=== PATIENT | female | born 1960 | race Caucasian/White ===

== ENCOUNTER 2025-07-18 18:10 | Inpatient (IN) ==
--- NOTE | 2025-07-18 18:39 | Emergency Department Note ---
History of Present Illness General Chief complaint: Infection Stated complaint: BLACK SPOT ON FOOT, INFECTION IN BONE Time Seen by Provider: 07/18/25 18:28 History of Present Illness Maximum Pain Intensity: 5 This is a 65-year-old female with a history of diabetes that presents to the emergency department via private vehicle referred by local urgent care with complaints of "left foot infection". The patient notes that her noticed a black spot to her distal left lateral foot on Friday, 2 days ago. No known trauma or injury. The patient noticed the area is somewhat uncomfortable. No nausea or vomiting. No fevers or chills. Patient referred in for further evaluation. Current pain 01/01. Home Medications Medication Instructions Recorded Confirmed Type aspirin 81 mg tablet 81 mg PO DAILY ##0 03/17/13 07/18/25 History epinephrine 0.3 mg/0.3 mL 0.3 mg IM UD PRN Allergic Reaction 09/28/15 07/18/25 History injection, auto-injector (EpiPen) ##0 folic acid 1 mg tablet 1 mg PO DAILY ##0 09/28/15 07/18/25 History albuterol sulfate 90 mcg/actuation 2 puff inhalation Q4H PRN WHEEZING 07/18/25 07/18/25 History aerosol inhaler OR COUGH atorvastatin 20 mg tablet 20 mg PO DAILY 07/18/25 07/18/25 History cephalexin 500 mg capsule 500 mg PO BID 07/18/25 07/18/25 History empagliflozin 10 mg tablet 10 mg PO DAILY 07/18/25 07/18/25 History (Jardiance) hydrocodone 5 mg-acetaminophen 325 1 tab PO QID PRN Pain 07/18/25 07/18/25 History mg tablet insulin glargine 100 unit/mL (3 27 unit subcut HS 07/18/25 07/18/25 History mL) subcutaneous pen (Lantus Solostar U-100 Insulin) levothyroxine 88 mcg tablet 88 mcg PO DAILY 07/18/25 07/18/25 History lisinopril 10 mg tablet 10 mg PO DAILY 07/18/25 07/18/25 History losartan 25 mg tablet 25 mg PO QAM 07/18/25 07/18/25 History sodium chloride 1,000 mg soluble 3,000 mg PO DAILY 07/18/25 07/18/25 History tablet tirzepatide 7.5 mg/0.5 mL 7.5 mg subcut WK 07/18/25 07/18/25 History subcutaneous pen injector (Mounjaro) Allergies Allergy/AdvReac Type Severity Reaction Status Date / Time bee venom protein (honey bee) Allergy Severe ANAPHYLAXIS Verified 07/18/25 20:06 latex Allergy Severe ANAPHYLAXIS Verified 07/18/25 20:06 adhesive Allergy Unknown TAPE - Verified 07/18/25 20:06 SKIN IRRITATION allopurinol Allergy Unknown UNKNOWN Verified 07/18/25 20:06 flurbiprofen Allergy Unknown UNKNOWN Unverified 07/18/25 20:06 vitamin E (d-alpha Allergy Unknown Rash Verified 07/18/25 20:06 tocopherol) NSAIDS (Non-Steroidal AdvReac Unknown UNKNOWN Verified 07/18/25 20:06 Anti-Inflamma Past Med/Surg History Problem List (Updated 07/18/25 @ 23:33 by Drew Yan PA-C) Hypothyroid Sleep apnea RITTER (nonalcoholic steatohepatitis) Nicotine dependence Rheumatoid arthritis Dyslipidemia Hypertension, uncontrolled COPD (chronic obstructive pulmonary disease) Insulin-requiring or dependent type II diabetes mellitus Foot osteomyelitis, left (Acute) Idiopathic polyneuropathy Cellulitis (Acute) Post-operative infection (Acute) Yeast dermatitis (Acute) Social History Smoking Status: Current every day smoker Tobacco Type: Cigarettes Second Hand Exposure: Yes; Do You Dip or Chew Tobacco: No; Tobacco Cessation Education Requested by Patient: No Hx Alcohol Use: No Hx Substance Use: No Preferred Language: Botswanan Communication Ability: Effective Time Analysis Clerk Required: No Beliefs That Will Affect Care: None Current Living Situation: Spouse and Family Current Living Situation Comment: Lives at home with Fiance, son, and 2 grandkids Other Information That Helps Us Care for You: No Feels Safe at Home: Yes Safety Concerns: Feels Safe At This Time Assistive Devices: Denture - Upper and Denture - Lower Review of Systems A total of 10 systems reviewed and were otherwise negative Physical Exam Vital Signs Vital Signs - 24 hr 07/18/25 18:22 07/18/25 18:52 07/18/25 20:11 Temperature 36.4 C L Temperature Source Skin Pulse Rate 89 Pulse Rate [Right Finger] 81 84 Pulse Rhythm Regular Pulse Rhythm [Right Finger] Pulse Strength Normal Pulse Strength [Right Finger] Respiratory Rate 20 19 20 Respiratory Effort / Characteristics Non-Labored Spontaneous Accessory Muscle Use Non-Labored Respiratory Depth Normal Normal Blood Pressure 205/108 H Blood Pressure [Right Arm] 185/91 H 204/116 H Blood Pressure Mean 140 Blood Pressure Mean [Right Arm] 122 145 Blood Pressure Position [Right Arm] Pulse Oximetry 97 96 98 Oxygen Delivery Method Room Air Room Air Room Air Sepsis Recent Fever Within 48 Hours No Sepsis New/Unexplained Change in Mental Status N/A Sepsis Action Taken by Nursing No Action Required 07/18/25 20:30 Temperature Temperature Source Pulse Rate Pulse Rate [Right Finger] 82 Pulse Rhythm Pulse Rhythm [Right Finger] Regular Pulse Strength Pulse Strength [Right Finger] Normal Respiratory Rate 20 Respiratory Effort / Characteristics Respiratory Depth Normal Blood Pressure Blood Pressure [Right Arm] 187/98 H Blood Pressure Mean Blood Pressure Mean [Right Arm] 127 Blood Pressure Position [Right Arm] Lying Pulse Oximetry 96 Oxygen Delivery Method Room Air Sepsis Recent Fever Within 48 Hours Sepsis New/Unexplained Change in Mental Status Sepsis Action Taken by Nursing VITAL SIGNS - Vital signs and nursing notes were reviewed. Hypertensive, otherwise stable and afebrile. GENERAL -65-year-old female appearing her stated age who is in no acute distress. Communicates well with provider and answers questions appropriately. SKIN -1.5 cm slightly raised dark ulceration to the distal lateral left foot area. HEAD - NC/AT. EYES - Sclera anicteric. LUNGS - CTA CARDIAC - RRR EXTREMITIES - No clubbing or peripheral cyanosis. Left dorsalis pedis pulse within normal limits. +5/5 strength noted in UE/LE bilaterally. Left distal, lateral foot ulcer noted. No purulence. NEUROLOGIC - Cranial nerves grossly intact. PSYCH -alert, oriented and pleasant on exam Course Administered Medications Enoxaparin Sodium (Enoxaparin Inj 40 Mg/0.4 Ml Syr) 40 mg SQ Q24H AMINATA Stop: 08/17/25 22:59 Last Admin: 07/18/25 23:15 Dose: 40 mg Documented By: EDMAR Hydroxychloroquine Sulfate (Hydroxychloroquine Sulfate 200 Mg Tab) 400 mg PO HS AMINATA Stop: 08/17/25 22:44 Last Admin: 07/18/25 23:15 Dose: 400 mg Documented By: EDMAR Insulin Aspart (Insulin Aspart Per Unit Charge) 0 units SC ACHS AMINATA Stop: 08/17/25 22:35 Last Admin: 07/18/25 23:14 Dose: 3 units Documented By: EDMAR Co-signed By: LYRIC Insulin Glargine (Lantus Per Unit Charge) 30 units SQ HS AMINATA Stop: 08/17/25 22:35 Last Admin: 07/18/25 23:13 Dose: 30 units Documented By: EDMAR Co-signed By: LYRIC Lisinopril (Lisinopril 20 Mg Tab) 20 mg PO DAILY AMINATA Stop: 08/17/25 22:44 Last Admin: 07/18/25 23:15 Dose: 20 mg Documented By: EDMAR Losartan Potassium (Losartan Potassium 50 Mg Tab) 100 mg PO QAM AMINATA Stop: 08/17/25 22:44 Last Admin: 07/18/25 23:15 Dose: 100 mg Documented By: EDMAR Discontinued Medications Cefepime HCl (Cefepime 2,000 Mg/20 Ml Iv Push) Confirm Administered Dose 2,000 mg IV .STK-MED ONE Stop: 07/18/25 20:43 Last Admin: 07/18/25 20:43 Dose: Not Given Documented By: RONALD Gadobutrol (Gadobutrol 65ml Vial) 9 ml IV ONCE ONE Stop: 07/18/25 22:09 Last Admin: 07/18/25 22:08 Dose: 9 ml Documented By: NIXON Cefepime HCl (Maxipime 2000mg) 2,000 mg in 20 mls @ 5 mls/min IV NOW STA; Protocol Stop: 07/18/25 18:39 Last Admin: 07/18/25 20:43 Dose: 5 mls/min Documented By: RONALD Piperacillin Sod/Tazobactam Sod (Zosyn) 4.5 gm in 100 mls @ 200 mls/hr IV NOW ONE; Protocol Stop: 07/18/25 23:14 Last Admin: 07/18/25 23:14 Dose: 200 mls/hr Documented By: EDMAR Medical Decision Making Laboratory Data 07/18/25 18:45 07/18/25 18:45 Lab Results 07/18/25 07/18/25 Range/Units 18:45 18:55 WBC 9.38 (4.8-10.8) K/ul RBC 4.31 (4.20-5.40) M/uL Hgb 13.7 (12.0-16.0) g/dL Hct 39.5 (37.0-47.0) % MCV 91.6 (80.0-100.0) fL MCH 31.8 (25.0-34.0) pg MCHC 34.7 (32.0-36.0) g/dL RDW Std Deviation 43.6 (36.4-46.3) fL RDW Coeff of Hilary 12.8 (11.5-14.5) % Plt Count 230 (130-400) K/uL MPV 11.1 (9.4-12.4) fL Immature Gran % (Auto) 0.2 % Neut % (Auto) 54.5 % Lymph % (Auto) 36.0 % Lassen % (Auto) 6.9 % Eos % (Auto) 2.1 % Baso % (Auto) 0.3 % Neut # (Auto) 5.10 (1.40-6.50) K/uL Lymph # (Auto) 3.38 (1.20-3.40) K/uL Lassen # (Auto) 0.65 H (0.11-0.59) K/uL Eos # (Auto) 0.20 (0.00-0.50) K/uL Baso # (Auto) 0.03 (0.00-0.20) K/uL Immature Gran # (Auto) 0.02 (0.01-0.20) K/uL ESR 91 H (0-30) mm/hr PT 10.6 (9.0-12.0) Seconds INR 1.0 (0.9-1.1) APTT 25 (21-31) Seconds PTT Ratio 0.9 Sodium 129 L (136-145) mmol/L Potassium 4.3 (3.5-5.1) mmol/L Chloride 95 L (98-107) mmol/L Carbon Dioxide 26 (21-32) mmol/L Anion Gap 8 (3-11) BUN 19 (6-23) mg/dl Creatinine 0.74 (0.6-1.2) mg/dl Est Cr Clr Drug Dosing 85.4 ml/min eGFR 90.85 BUN/Creatinine Ratio 25.7 H (10-20) Glucose 227 H (70-99(Fasting)) mg/dl Calcium 9.3 (8.6-10.3) mg/dl Magnesium 2.0 (1.7-2.4) mg/dl Total Bilirubin 0.4 (0.2-1.0) mg/dl AST 21 (13-39) U/L ALT 28 (7-52) U/L Alkaline Phosphatase 145 H (34-104) U/L C-Reactive Protein 2.99 H (0-0.5) mg/dl Total Protein 8.2 (6.0-8.3) gm/dl Albumin 3.6 (3.4-5.0) gm/dl Globulin 4.6 H (2.5-4.0) gm/dl Albumin/Globulin Ratio 0.8 L (0.9-2) Procalcitonin 0.18 (0-0.5) ng/ml Nasal Screen MRSA (PCR) Negative (Negative) Imaging Data Radiologist's Impression: Foot X-Ray 07/18/25 18:36 INDICATION: Pain TECHNIQUE: 3 views of the left foot were obtained. COMPARISON: None FINDINGS: No displaced acute osseous process is identified. There is soft tissue inflammatory change with swelling laterally abutting the fifth digit MTP joint. Subtle erosive changes are suggested in the abutting bones of the metatarsal head and the base of the proximal phalanx. Pes planus with likely Charcot arthropathy of the hindfoot and the midfoot. IMPRESSION: Erosive changes are suggested in the fifth digit metatarsal head and proximal phalangeal base abutting the soft tissue inflammatory change. Early osteomyelitis could be a consideration Electronically signed by Jordan Boswell 07-18-2025 7:55 PM MDM Narrative Patient was seen and evaluated as above in room B09. Review was performed of triage nursing notes and vital signs. A thorough history and physical exam was performed. The patient presents to us today for evaluation of what appears to be an infection to the left foot. She was referred over concern for possible osteomyelitis. Options of care were discussed with the patient. IV access was established. Labs were drawn. There is no leukocytosis or concerning anemia. There is ESR elevation of 91, hyponatremia 129, hyperglycemia 227 with a CRP of 2.99. Procalcitonin within normal range. MRSA screen negative. IV cefepime ordered. X-ray does reveal concern for erosive changes that may be secondary to osteomyelitis. I do believe that further evaluation and management in the inpatient setting is warranted. Case discussed with the hospitalist service. Please refer to further documentation regarding her stay. In the evaluation and treatment of this patient the following differential diagnoses were entertained: Cellulitis, abscess, osteomyelitis, among others Impression & Plan Foot osteomyelitis, left Discharge Plan Visit Data Chief Complaint: Infection Stated Complaint: BLACK SPOT ON FOOT, INFECTION IN BONE ED Provider: Sg Robin ED Midlevel Provider: Drew Yan Discharge Problem: Foot osteomyelitis, left Patient Disposition: Admitted As Inpatient Condition: Good Discharge Instructions Interventions: ED Discharge Assessment Last Done: 07/18/25 21:39
[2025-07-18 19:12] LABS: Hematocrit (blood only) 39.5 % (37.0-47.0); Hemoglobin 13.7 g/dL (12.0-16.0); Immature Granulocytes # (auto) 0.02 K/uL (0.01-0.20); Immature Granulocytes % (auto) 0.2 %; Mean Corpuscular Hemoglobin 31.8 pg (25.0-34.0); Mean Corpuscular Volume 91.6 fL (80.0-100.0); Platelet Count 230 K/uL (130-400); RDW Standard Deviation 43.6 fL (36.4-46.3); Red Blood Count 4.31 M/uL (4.20-5.40); White Blood Count 9.38 K/ul (4.8-10.8)
[2025-07-18 19:43] LABS: INR 1.0 (0.9-1.1); Partial Thromboplastin Time 25 Seconds (21-31); Prothrombin Time 10.6 Seconds (9.0-12.0)
[2025-07-18 19:44] LABS: Alanine Aminotransferase 28.0 U/L (7-52); Albumin Globulin Ratio 0.8 (0.9-2); Albumin Level 3.6 gm/dl (3.4-5.0); Alkaline Phosphatase 145.0 U/L (34-104); Anion Gap 8.0 (3-11); Bilirubin,Total 0.4 mg/dl (0.2-1.0); Blood Urea Nitrogen 19.0 mg/dl (6-23); Calcium 9.3 mg/dl (8.6-10.3); Carbon Dioxide 26.0 mmol/L (21-32); Chloride 95.0 mmol/L (98-107); Creatinine Clr Calc Pharmacy 85.4 ml/min; Globulin 4.6 gm/dl (2.5-4.0); Glucose 227.0 mg/dl (70-99(Fasting)); Magnesium 2.0 mg/dl (1.7-2.4); Potassium 4.3 mmol/L (3.5-5.1); Sodium 129.0 mmol/L (136-145); Total Protein 8.2 gm/dl (6.0-8.3)
--- NOTE | 2025-07-18 19:55 | XRay Report ---
INDICATION: Pain TECHNIQUE: 3 views of the left foot were obtained. COMPARISON: None FINDINGS: No displaced acute osseous process is identified. There is soft tissue inflammatory change with swelling laterally abutting the fifth digit MTP joint. Subtle erosive changes are suggested in the abutting bones of the metatarsal head and the base of the proximal phalanx. Pes planus with likely Charcot arthropathy of the hindfoot and the midfoot. IMPRESSION: Erosive changes are suggested in the fifth digit metatarsal head and proximal phalangeal base abutting the soft tissue inflammatory change. Early osteomyelitis could be a consideration Electronically signed by Jordan Boswell 07-18-2025 7:55 PM
[2025-07-18] MEDS: CEFEPIME 2000MG 2,000 MG/20 ML SYR IV STA (20:43)
[2025-07-18] MEDS: CEFEPIME 2,000 MG/20 ML IV PUSH IV ONE (20:43)
--- NOTE | 2025-07-18 20:49 | History & Physical Report ---
Date of Service July 18, 2025 Assessment & Plan (1) Foot osteomyelitis, left: (2) Insulin-requiring or dependent type II diabetes mellitus: (3) COPD (chronic obstructive pulmonary disease): (4) Hypertension, uncontrolled: (5) Dyslipidemia: (6) Hypothyroid: (7) Rheumatoid arthritis: (8) Nicotine dependence: (9) RITTER (nonalcoholic steatohepatitis): (10) Sleep apnea: Plan Patient 65-year-old female with known diabetes presents with what appears to be osteomyelitis and necrotic hematoma over the left fifth metatarsal. Admit to the MedSur unit Broad-spectrum antibiotics MRI of the foot to more fully evaluate for osteomyelitis Podiatry consult Monitor glucose, insulin long-acting and short acting, consult pharmacy for further management Continue outpatient blood pressure medications, increase lisinopril losartan for better blood pressure control Check hemoglobin A1c Check TSH Consult case management, anticipate patient may need prolonged IV antibiotics Monitor blood cultures History of Present Illness Chief Complaint: Black spot on side of left foot Primary Care Provider: Preston Eduardo Jr, MD Patient is a 65-year-old female with known diabetes, COPD, hypertension, rheumatoid arthritis, and dyslipidemia was made aware by her significant other that she had a black spot on the lateral aspect of her left foot on Friday. She did notice it be a little bit painful but was not really too red or swollen. Proceeded to urgent care today x-rays urgent care question osteomyelitis and they sent her to the emergency room. In the emergency room Repeat x-rays were concerning for osteomyelitis. WBCs were normal but ESR was significantly elevated. Procalcitonin was within normal range. She was referred to our service for further evaluation and treatment. Time of my evaluation patient is comfortable. She denies any fever or chills. No cough or cold symptoms. She really could not give a whole lot of detailed history. She does not remember hitting the foot or having open sore on the foot. States that her significant other saw it on Friday. Before then she has no known issues with her feet. She does know she has diabetes. She does know that she takes a long-acting and a short acting insulin. She really cannot tell me the names of any of her other medications. She does admit to smoking at least a pack to a pack and a half a day of cigarettes a day no significant alcohol use. Allergies Allergy/AdvReac Type Severity Reaction Status Date / Time bee venom protein (honey bee) Allergy Severe ANAPHYLAXIS Verified 07/18/25 20:06 latex Allergy Severe ANAPHYLAXIS Verified 07/18/25 20:06 adhesive Allergy Unknown TAPE - Verified 07/18/25 20:06 SKIN IRRITATION allopurinol Allergy Unknown UNKNOWN Verified 07/18/25 20:06 flurbiprofen Allergy Unknown UNKNOWN Unverified 07/18/25 20:06 vitamin E (d-alpha Allergy Unknown Rash Verified 07/18/25 20:06 tocopherol) NSAIDS (Non-Steroidal AdvReac Unknown UNKNOWN Verified 07/18/25 20:06 Anti-Inflamma Home Medications Medication Instructions Recorded Confirmed Type aspirin 81 mg tablet 81 mg PO DAILY ##0 03/17/13 07/18/25 History epinephrine 0.3 mg/0.3 mL 0.3 mg IM UD PRN Allergic Reaction 09/28/15 07/18/25 History injection, auto-injector (EpiPen) ##0 folic acid 1 mg tablet 1 mg PO DAILY ##0 09/28/15 07/18/25 History albuterol sulfate 90 mcg/actuation 2 puff inhalation Q4H PRN WHEEZING 07/18/25 07/18/25 History aerosol inhaler OR COUGH atorvastatin 20 mg tablet 20 mg PO DAILY 07/18/25 07/18/25 History cephalexin 500 mg capsule 500 mg PO BID 07/18/25 07/18/25 History empagliflozin 10 mg tablet 10 mg PO DAILY 07/18/25 07/18/25 History (Jardiance) hydrocodone 5 mg-acetaminophen 325 1 tab PO QID PRN Pain 07/18/25 07/18/25 History mg tablet insulin glargine 100 unit/mL (3 27 unit subcut HS 07/18/25 07/18/25 History mL) subcutaneous pen (Lantus Solostar U-100 Insulin) levothyroxine 88 mcg tablet 88 mcg PO DAILY 07/18/25 07/18/25 History lisinopril 10 mg tablet 10 mg PO DAILY 07/18/25 07/18/25 History losartan 25 mg tablet 25 mg PO QAM 07/18/25 07/18/25 History sodium chloride 1,000 mg soluble 3,000 mg PO DAILY 07/18/25 07/18/25 History tablet tirzepatide 7.5 mg/0.5 mL 7.5 mg subcut WK 07/18/25 07/18/25 History subcutaneous pen injector (Flaco) Past Med/Surg History Problem List (Updated 07/18/25 @ 20:47 by Sathya Harrington DO) Hypothyroid Sleep apnea RITTER (nonalcoholic steatohepatitis) Nicotine dependence Rheumatoid arthritis Dyslipidemia Hypertension, uncontrolled COPD (chronic obstructive pulmonary disease) Insulin-requiring or dependent type II diabetes mellitus Foot osteomyelitis, left Idiopathic polyneuropathy Cellulitis (Acute) Post-operative infection (Acute) Yeast dermatitis (Acute) Social History Smoking Status: Current every day smoker Tobacco Type: Cigarettes Preferred Language: Algerian Feels Safe at Home: Yes Review of Systems Review of Systems: Pertinent positive and negative review of systems as mentioned in the HPI Physical Exam Physical Exam: Constitutional: Alert, not overly ill in appearance, nontoxic HEENT: Mucous membranes moist. Sclera clear Neck: Soft, no adenopathy Lungs: Decreased breath sounds, few expiratory wheezes CV: S1-S2, regular Abdomen: Soft, nontender, nondistended Extremities: 1+ pretibial edema Musculoskeletal: Significantly deformed joints from arthritis specifically of the hands, arthritic nodules on forearm Neuro: No focal deficits Psych: Cooperative, normal mood Results & Data Results & Data Vital Signs (Past 12 Hours) Vital Signs Temp Pulse Pulse Resp BP BP Pulse Ox 07/18/25 20:11 84 20 204/116 H 98 07/18/25 18:52 81 19 185/91 H 96 07/18/25 18:22 36.4 C L 89 20 205/108 H 97 O2 Del Method 07/18/25 20:11 Room Air 07/18/25 18:52 Room Air 07/18/25 18:22 Room Air Diagnostic Findings Reviewed imaging, laboratory and diagnostic studies. Pertinent findings as below. WBCs 9.3 Hemoglobin 13.7 Platelets of 230 ESR 91 Coags within normal range Sodium 129 Creatinine 0.74 Glucose 227 Procalcitonin 0.18 MRSA nasal screen negative Foot x-ray: Fifth metatarsal and fifth proximal phalange concerning for possible osteomyelitis Code Status & VTE Plan VTE Prophylaxis Plan VTE Prophylaxis will be ordered: Yes
[2025-07-18] MEDS: GADOBUTROL 65ML VIAL IV ONE (22:08)
[2025-07-18] MEDS ORDERED: ALUMINUM/MAGNESIUM SUSP 30 ML UDC PO PRN (22:36)
[2025-07-18] MEDS ORDERED: DEXTROSE 50% 50 ML SYRINGE IV PRN (22:36)
[2025-07-18] MEDS ORDERED: GLUCOSE 10 TAB/TUBE PO PRN (22:36)
[2025-07-18] MEDS ORDERED: GLUCAGON FOR INJ 1 MG VIAL SQ PRN (22:36)
[2025-07-18] MEDS ORDERED: ALBUT/IPRATROP 3MG/0.5MG NEB 3 ML VIAL NEB PRN (22:36)
[2025-07-18] MEDS ORDERED: PHARMACY GLYCEMIC MGMT CONSULT PRN (22:36)
[2025-07-18] MEDS ORDERED: POLYETHYLENE (MIRALAX) 17 GM PACK PO PRN (22:36)
[2025-07-18] MEDS ORDERED: GLUCOSE 40% GEL 15 GM TUBE PO PRN (22:36)
[2025-07-18] MEDS ORDERED: ONDANSETRON INJ 2 MG/ML 2 ML VIAL IV PRN (22:36)
[2025-07-18] MEDS ORDERED: ACETAMINOPHEN 325 MG TAB PO PRN (22:36)
[2025-07-18] MEDS ORDERED: MAGNESIUM HYDROXIDE SUSP 30 ML UDC PO PRN (22:36)
[2025-07-18] MEDS ORDERED: CARBOHYDRATES FOR HYPOGLYCEMIA PO PRN (22:36)
[2025-07-18] MEDS: LANTUS PER UNIT CHARGE SQ SCH (23:13)
[2025-07-18] MEDS: INSULIN ASPART PER UNIT CHARGE SC SCH (23:14)
[2025-07-18] MEDS: PIPERACILLIN/TAZOBACTAM 4.5 GM/100 ML BAG IV ONE (23:14)
[2025-07-18] MEDS: ENOXAPARIN INJ 40 MG/0.4 ML SYR SQ SCH (23:15)
[2025-07-18] MEDS: HYDROXYCHLOROQUINE SULFATE 200 MG TAB PO SCH (23:15)
[2025-07-18] MEDS: LOSARTAN POTASSIUM 50 MG TAB PO SCH (23:15)
--- NOTE | 2025-07-19 00:29 | Magnetic Resonance Report ---
Exam(s): MRI LEFT FOOT W/WO Contrast IV Amt: 9ml gadavist EXAM: MR Left Lower Extremity Without and With Intravenous Contrast, Foot CLINICAL HISTORY: Reason for exam: Osteomyelitis fifth metatarsal. OTHER: Other Notes: wound 5th metatarsal head, rule out osteomyelitis TECHNIQUE: Multiplanar magnetic resonance images of the left foot without and with intravenous contrast. Moderate motion artifact. CONTRAST: Patient received 9ml gadavist of IV contrast COMPARISON: Left foot x-ray, same day. FINDINGS: Soft tissues: Crescentic fluid collection associated with the 5th digit MTP joint, measures 0.8 x 0.2 x 0.6 cm, adjacent to skin ulceration, difficult to clearly evaluate due to motion artifact, small abscess or septic joint difficult to exclude. Bones/joints: Small focal area marrow edema and enhancement distal 5th metatarsal, nonspecific, suspect osteomyelitis. Severe degenerative joint disease at multiple areas, including 5th MTP, 4th and 5th TMT joints. IMPRESSION: 1. Nonspecific edema distal 5th metatarsal, suspect osteomyelitis, given surrounding skin ulceration. 2. Crescentic fluid deep to skin ulceration, nonspecific, small abscess or septic arthritis difficult to exclude. 3. Severe arthritis, multiple levels. 4. Moderate motion/artifact. Electronically signed by: Jerrica Fuchs M.D. 07/19/25 00:28 AM
[2025-07-19] MEDS: PIPERACILLIN/TAZOBACTAM 4.5 GM/100 ML BAG IV SCH (04:10)
[2025-07-19] MEDS: LEVOTHYROXINE SODIUM 88 MCG TABLET PO SCH (04:10)
[2025-07-19] MEDS ORDERED: Nursing to Pharmacy Communication SCH ×2 (05:00→20:00)
[2025-07-19] MEDS: INSULIN ASPART PER UNIT CHARGE SC SCH ×2 (06:17→22:03)
[2025-07-19 06:23] LABS: Hematocrit (blood only) 37.2 % (37.0-47.0); Hemoglobin 13.3 g/dL (12.0-16.0); Mean Corpuscular Hemoglobin 32.6 pg (25.0-34.0); Mean Corpuscular Volume 91.2 fL (80.0-100.0); Platelet Count 231 K/uL (130-400); RDW Standard Deviation 42.0 fL (36.4-46.3); Red Blood Count 4.08 M/uL (4.20-5.40); White Blood Count 7.19 K/ul (4.8-10.8)
[2025-07-19 06:42] LABS: Anion Gap 9.0 (3-11); Blood Urea Nitrogen 15.0 mg/dl (6-23); Calcium 8.9 mg/dl (8.6-10.3); Carbon Dioxide 25.0 mmol/L (21-32); Chloride 98.0 mmol/L (98-107); Creatinine Clr Calc Pharmacy 116.0 ml/min; Glucose 173.0 mg/dl (70-99(Fasting)); Potassium 4.1 mmol/L (3.5-5.1); Sodium 132.0 mmol/L (136-145)
[2025-07-19 06:57] LABS: Thyroid Stimulating Hormone 11.574 uIu/ml (0.300-4.500)
[2025-07-19 07:47] LABS: Hemoglobin A1C 9.6 % (4.5-5.6)
[2025-07-19 07:51] LABS: T4 Free Thyroxine 1.06 ng/dl (0.61-1.60)
[2025-07-19] MEDS: ALBUT/IPRATROP 3MG/0.5MG NEB 3 ML VIAL NEB SCH (07:58)
[2025-07-19] MEDS: REMOVE NICODERM PATCH SCH (08:40)
[2025-07-19] MEDS: ATORVASTATIN 20 MG TAB PO SCH (08:41)
[2025-07-19] MEDS: FOLIC ACID 1 MG TAB PO SCH (08:41)
[2025-07-19] MEDS: ASPIRIN 81 MG ECTAB PO SCH (08:41)
[2025-07-19] MEDS: SODIUM CHLORIDE 1 GM TABLET PO SCH (08:42)
[2025-07-19] MEDS: UMECLIDINIUM BROMIDE 62.5MCG/BLISTER 7 PUFFS/INHALER INH SCH (08:42)
[2025-07-19] MEDS: NICOTINE 21 MG/24 HR TDSY TD SCH (08:43)
[2025-07-19] MEDS ORDERED: LOSARTAN POTASSIUM 50 MG TAB PO SCH (09:00)
--- NOTE | 2025-07-19 10:45 | Podiatry Consultation ---
Date of Consultation July 19, 2025 Assessment & Plan (1) Diabetic ulcer of left foot associated with type 2 diabetes mellitus, with necrosis of bone: Diabetic foot ulcer location: midfoot Qualified Code(s): E11.621 - Type 2 diabetes mellitus with foot ulcer; L97.424 - Non-pressure chronic ulcer of left heel and midfoot with necrosis of bone (2) Cellulitis of left foot: Plan Imaging results including MRI and x-ray of the left foot reviewed with patient showing radiographic findings consistent with osteomyelitis surrounding the fifth metatarsal phalangeal joint. Wound over the lateral aspect of the fifth metatarsal head left foot is debrided as detailed in procedure note below with underlying wound extending to periosteum/joint capsule. Reviewed treatment options with patient including extended course of antibiotics versus partial fifth ray amputation. Patient would like to move forward with partial fifth ray amputation. She is reaching out to her family to discuss prior to signing consent. Order placed for lower extremity duplex ultrasound with ABIs prior to amputation. Culture collected from left lateral foot wound sent for culture and sensitivity. Plan for partial fifth ray amputation of the left foot with attempted primary closure 07/19/2025. Continue n.p.o. until postop Thank you for consulting podiatry daily care of this patient. Will continue to follow while she remains in house and skin for follow-up in the podiatry clinic following discharge. Patient would benefit from appointment with diabetic foot clinic at time of discharge to initiate process of obtaining diabetic foot wear in hopes to prevent future ulceration and amputation. Surgical Excisional Debridement: Indication:Removal of necrotic tissue to promote healing Pre-op diagnosis: Diabetic ulcer left foot Post-op diagnosis: Same Procedure: Surgical excisional debridement diabetic ulcer left foot Surgeon: Franklin Zhou DPM Anesthesia: None Bleeding:Minimal Disposition: Tolerated well Procedure: Informed consent obtained, Time Out taken. Patient understands and agrees to procedure. Excisional debridement was carried out of diabetic ulcer left foot consisting of hyperkeratotic, slough and subcutaneous tissue was carried out utilizing a curette and 15 blade. Anesthesia-none. Patient tolerated the procedure well. Bleeding-minimal. Controlled with-direct pressure. Post-debridement measurements: 1 cm x 0.9 cm x 4 cm. A total of 0.9 cm2 were debrided. History of Present Illness Reason for Consultation: Left fifth metatarsal osteomyelitis Attending Physician: Merritt Hercules MD History of Present Illness 65-year-old female past medical history significant for type 2 diabetes with diabetic peripheral neuropathy, COPD, hypertension, rheumatoid arthritis, dyslipidemia. Presents to [facility] emergency department 07/18/2025 with increased pain to the lateral aspect of the left foot. She reports first noticing a blood blister to the lateral aspect of the foot 07/16/2025. Denies any drainage. She has had some redness and swelling surrounding the wound with redness extending proximally along the lateral foot which seems to get worse with weightbearing and shoe gear and improves with elevation. Denies previous treatment. Denies nausea, vomiting, fever, chills. On admission white blood count is 9.3, ESR 91, C-reactive protein 2.99, procalcitonin 0.18. X-ray and MRI imaging of the left foot concerning for osteomyelitis surrounding the fifth metatarsal phalangeal joint. Allergies Allergy/AdvReac Type Severity Reaction Status Date / Time bee venom protein (honey bee) Allergy Severe ANAPHYLAXIS Verified 07/18/25 20:06 latex Allergy Severe ANAPHYLAXIS Verified 07/18/25 20:06 adhesive Allergy Unknown TAPE - Verified 07/18/25 20:06 SKIN IRRITATION allopurinol Allergy Unknown UNKNOWN Verified 07/18/25 20:06 flurbiprofen Allergy Unknown UNKNOWN Unverified 07/18/25 20:06 vitamin E (d-alpha Allergy Unknown Rash Verified 07/18/25 20:06 tocopherol) NSAIDS (Non-Steroidal AdvReac Unknown UNKNOWN Verified 07/18/25 20:06 Anti-Inflamma Home Medications Medication Instructions Recorded Confirmed Type aspirin 81 mg tablet 81 mg PO DAILY ##0 03/17/13 07/18/25 History epinephrine 0.3 mg/0.3 mL 0.3 mg IM UD PRN Allergic Reaction 09/28/15 07/18/25 History injection, auto-injector (EpiPen) ##0 folic acid 1 mg tablet 1 mg PO DAILY ##0 09/28/15 07/18/25 History albuterol sulfate 90 mcg/actuation 2 puff inhalation Q4H PRN WHEEZING 07/18/25 07/18/25 History aerosol inhaler OR COUGH atorvastatin 20 mg tablet 20 mg PO DAILY 07/18/25 07/18/25 History cephalexin 500 mg capsule 500 mg PO BID 07/18/25 07/18/25 History empagliflozin 10 mg tablet 10 mg PO DAILY 07/18/25 07/18/25 History (Jardiance) hydrocodone 5 mg-acetaminophen 325 1 tab PO QID PRN Pain 07/18/25 07/18/25 History mg tablet insulin glargine 100 unit/mL (3 27 unit subcut HS 07/18/25 07/18/25 History mL) subcutaneous pen (Lantus Solostar U-100 Insulin) levothyroxine 88 mcg tablet 88 mcg PO DAILY 07/18/25 07/18/25 History lisinopril 10 mg tablet 10 mg PO DAILY 07/18/25 07/18/25 History losartan 25 mg tablet 25 mg PO QAM 07/18/25 07/18/25 History sodium chloride 1,000 mg soluble 3,000 mg PO DAILY 07/18/25 07/18/25 History tablet tirzepatide 7.5 mg/0.5 mL 7.5 mg subcut WK 07/18/25 07/18/25 History subcutaneous pen injector (Mounjaro) Patient History Social History Smoking Status: Current every day smoker Tobacco Type: Cigarettes Second Hand Exposure: Yes; Do You Dip or Chew Tobacco: No; Tobacco Cessation Education Requested by Patient: No Hx Alcohol Use: No Hx Substance Use: No Preferred Language: Kazakh Communication Ability: Effective 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 Reports pain in the left foot. Physical Exam Physical Exam: Const: Appears well developed and well nourished. No signs of acute distress present. CV: Extremities: No cyanosis or edema. Capillary refill time is less than 2 seconds all digits of the bilateral foot. Posterior tibial and dorsalis pedis pulses are lightly palpable bilateral. Lymph: No palpable or visible regional lymphadenopathy. Neuro: Loss of protective sensation bilateral plantar foot Psych: Mood/Affect: Mood is normal. Affect is normal. Cognition: Orientation is intact to person, place and time. Focused lower extremity musculoskeletal exam: Leg: No pain with compression of the calf muscle. Ankles: Normal to inspection and palpation. No swelling bilaterally. No tenderness bilaterally.Motor strength is intact. Range of motion pain-free and unlimited. Feet: Ulceration overlying the lateral aspect of the fifth metatarsal head. Blood-tinged hyperkeratotic tissue was debrided exposing underlying wound with exposed subcutaneous tissue, periosteum and joint capsule with scant purulent drainage. Periwound erythema and edema. No lymphangitis or streaking. Results & Data Vital Signs (Past 12 Hours) Vital Signs Pulse Resp BP Pulse Ox O2 Del Method 07/19/25 09:18 Room Air 07/19/25 07:06 69 16 115/65 90 Room Air 07/19/25 04:15 113/69 Laboratory Results WBC 7.19 Hemoglobin A1c 9.6 ESR 91 CRP 2.99 Procalcitonin 0.18 Diagnostic Findings US arterial duplex LE LT -07/19/2025 CLINICAL HISTORY: pre op 5thtoe amputation COMPARISON STUDY: None FINDINGS: No significantly elevated velocities seen at the arteries of the left lower extremity. There are biphasic and triphasic waveforms throughout. Right FRANCISCO JAVIER is 1.1, normal. Left FRANCISCO JAVIER is 1.1, normal. IMPRESSION: No significant arterial narrowing seen at the left lower extremity. MRI left foot 07/18/2025 IMPRESSION: 1. Nonspecific edema distal 5th metatarsal, suspect osteomyelitis, given surrounding skin ulceration. 2. Crescentic fluid deep to skin ulceration, nonspecific, small abscess or septic arthritis difficult to exclude. 3. Severe arthritis, multiple levels. 4. Moderate motion/artifact. X-ray left foot 07/18/2025 IMPRESSION: Erosive changes are suggested in the fifth digit metatarsal head and proximal phalangeal base abutting the soft tissue inflammatory change. Early osteomyelitis could be a consideration PG Care Time/CCT Total # of Minutes Spent Total Time Spent with Patient: Total time spent is greater than 50% in coordination of care (as documented) at patient's floor/unit and/or counseling patient: Coding Level of Care Code 76832 INT INP/OBS CARE 2/55MIN Diagnoses Diabetic ulcer of left midfoot associated with type 2 diabetes mellitus, with necrosis of bone E11.621; L97.424 Diabetic foot ulcer location: midfoot Cellulitis of left foot L03.116 CPT Codes Debride Skin/Tissue - [id number] ([id number]) Comment 57 modifier
--- NOTE | 2025-07-19 14:22 | Pharmacy Report ---
Pharmacy Glycemic Short Note 2 - Date of Service July 19, 2025 - Glycemic Short BSG Results (Last 24 hours): 07/18/25 07/18/25 07/19/25 18:45 22:30 05:35 Glucose 227 H 173 H POC Glucose 220 H 07/19/25 07/19/25 06:12 12:14 Glucose POC Glucose 203 H 161 H OUTPATIENT ANTIDIABETIC REGIMEN: * Lantus 27 units HS, Mounjaro weekly, jardiance 10 mg daily ASSESSMENT: * Patient with hx of type II diabetes admitted with left toe osteomyelitis. * Currently NPO- BSGs have trended down since admission yesterday- received 30 units of lantus * Will continue with parameters similar to weight stress 3 PLAN FOR INPATIENT GLYCEMIC CONTROL: * Hold outpatient oral diabetes medications * Basal insulin * Lantus 23/30 units HS per scale * Bolus insulin * NovoLog per scale ACHS or Q6hrs while NPO * Goal Range: Low 120 mg/dL - High 160 mg/dL * Correction Factor: 25 mg/dL/unit * Nutritional / Prandial insulin per carb ratio of 1 unit per 9 grams CHO consumed
--- NOTE | 2025-07-19 14:35 | Ultrasound Report ---
US arterial duplex LE LT CLINICAL HISTORY: pre op 5thtoe amputation COMPARISON STUDY: None FINDINGS: No significantly elevated velocities seen at the arteries of the left lower extremity. Ther e are biphasic and triphasic waveforms throughout. Right FRANCISCO JAVIER is 1.1, normal. Left FRANCISCO JAVIER is 1.1, normal. IMPRESSION: No significant arterial narrowing seen at the left lower extremity. ACT 112: Negative or not required by law. Electronically signed by: Trell Barry M.D. 07/19/2025 2:32 PM
--- NOTE | 2025-07-19 14:57 | Hospitalist Progress Note ---
Date of Service July 19, 2025 Assessment & Plan (1) Foot osteomyelitis, left: (2) Insulin-requiring or dependent type II diabetes mellitus: (3) COPD (chronic obstructive pulmonary disease): (4) Hypertension, uncontrolled: (5) Dyslipidemia: (6) Hypothyroid: (7) Rheumatoid arthritis: (8) Nicotine dependence: (9) RITTER (nonalcoholic steatohepatitis): (10) Sleep apnea: Plan 65 yo female with pmhx diabetes, COPD, hypertension, rheumatoid arthritis, and dyslipidemia was made aware by her significant other that she had a black spot on the lateral aspect of her left foot on Friday 2/2 osteomyelitis. 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 This time includes: history taking, physical examination, medical decision making, counseling, ECG interpretation, imaging interpretation, lab interpretation, orders, and education, excluding time spent in the performance of separately billed services. Admission and Anticipated Discharge Date Admission Date: July 18, 2025 Subjective Patient seen and examined at bedside. Patient doing ok today. States she does not want an amputation but is willing to consider it with podiatry. Review of Systems Review of Systems: CONSTITUTIONAL: Patient denies fevers, chills, sweats and weight changes. EYES: Patient denies any visual symptoms. EARS, NOSE, AND THROAT: No difficulties with hearing. No symptoms of rhinitis or sore throat. CARDIOVASCULAR: Patient denies chest pains, palpitations, orthopnea and paroxysmal nocturnal dyspnea. RESPIRATORY: No dyspnea on exertion, no wheezing or cough. GI: No nausea, vomiting, diarrhea, constipation, abdominal pain, hematochezia or melena. : No urinary hesitancy or dribbling. No nocturia or urinary frequency. No abnormal urethral discharge. MUSCULOSKELETAL: toe pain NEUROLOGIC: No chronic headaches, no seizures. Patient denies numbness, tingling or weakness. PSYCHIATRIC: Patient denies problems with mood disturbance. No problems with anxiety. ENDOCRINE: No excessive urination or excessive thirst. DERMATOLOGIC: Patient denies any rashes or skin changes. Physical Exam Physical Exam: Gen: A&O 3 NAD HEENT: NCAT, EOMI, not icteric. External ears normal. No rhinorrhea. Moist mucous membranes. Neck: Supple, full range of motion, no observable masses, No meningeal sign. Lungs: No Respiratory distress. CV: RRR, no edema. Abdomen: Soft, nondistended, No rebound tenderness. MSK: left fifth digit necrotic tissue noted Skin: No rashes, petechiae, lesions. Normal color per patient. Neuro: Normal Gait, Grossly intact. Psych: Appropriate for situation. Results & Data Results & Data Vital Signs (Past 12 Hours) Vital Signs Pulse Resp BP Pulse Ox O2 Del Method 07/19/25 09:18 Room Air 07/19/25 07:06 69 16 115/65 90 Room Air 07/19/25 04:15 113/69 Laboratory Results -personally reviewed, creatinine at baseline, Na at baseline, A1c of 9.6 uncontrolled, elevated ESR/CRP correlates with osteomyelitis, TSH elevated consistent with subclinical hypothyroidism Medications Administered Aspirin (Aspirin 81 Mg Ectab) 81 mg PO DAILY AMINATA Stop: 08/18/25 08:59 Last Admin: 07/19/25 08:41 Dose: 81 mg Documented By: alberto Atorvastatin Calcium (Atorvastatin 20 Mg Tab) 20 mg PO DAILY AMINATA Stop: 08/18/25 08:59 Last Admin: 07/19/25 08:41 Dose: 20 mg Documented By: alberto Enoxaparin Sodium (Enoxaparin Inj 40 Mg/0.4 Ml Syr) 40 mg SQ Q24H AMINATA Stop: 08/17/25 22:59 Last Admin: 07/18/25 23:15 Dose: 40 mg Documented By: EDMAR Folic Acid (Folic Acid 1 Mg Tab) 1 mg PO DAILY AMINATA Stop: 08/18/25 08:59 Last Admin: 07/19/25 08:41 Dose: 1 mg Documented By: alberto Hydroxychloroquine Sulfate (Hydroxychloroquine Sulfate 200 Mg Tab) 400 mg PO HS [facility] [place] Stop: 08/17/25 22:44 Last Admin: 07/18/25 23:15 Dose: 400 mg Documented By: EDMAR Piperacillin Sod/Tazobactam Sod (Zosyn) 4.5 gm in 100 mls @ 25 mls/hr IV Q8H AMINATA; Protocol Stop: 07/26/25 03:59 Last Admin: 07/19/25 11:29 Dose: 25 mls/hr Documented By: alberto Infusion: 07/19/25 08:10 Dose: Infused Documented By: alberto Admin: 07/19/25 04:10 Dose: 25 mls/hr Documented By: EDMAR Insulin Aspart (Insulin Aspart Per Unit Charge) 0 units SC Q6 [facility] [place] Stop: 08/18/25 05:59 Last Admin: 07/19/25 12:39 Dose: 1 units Documented By: alberto Co-signed By: micheal Admin: 07/19/25 06:17 Dose: 2 units Documented By: EDMAR Co-signed By: LYRIC Levothyroxine Sodium (Levothyroxine Sodium 88 Mcg Tablet) 88 mcg PO DAILYBB [facility] [place] Stop: 08/18/25 06:29 Last Admin: 07/19/25 04:10 Dose: 88 mcg Documented By: EDMAR Lisinopril (Lisinopril 20 Mg Tab) 20 mg PO DAILY [facility] [place] Stop: 08/17/25 22:44 Last Admin: 07/19/25 08:41 Dose: 20 mg Documented By: alberto Admin: 07/18/25 23:15 Dose: 20 mg Documented By: EDMAR Losartan Potassium (Losartan Potassium 50 Mg Tab) 100 mg PO QAM [facility] [place] Stop: 08/17/25 22:44 Last Admin: 07/19/25 08:41 Dose: 100 mg Documented By: alberto Admin: 07/18/25 23:15 Dose: 100 mg Documented By: EDMAR Miscellaneous (Remove Nicoderm Patch) 1 each N/A DAILY@0859 [facility] [place] Stop: 08/18/25 08:58 Last Admin: 07/19/25 08:40 Dose: Not Given Documented By: alberto Nicotine (Nicotine 21 Mg/24 Hr Tdsy) 1 patch TD QAM AMINATA Stop: 08/18/25 08:59 Last Admin: 07/19/25 08:43 Dose: Not Given Documented By: alberto Oxycodone HCl (Oxycodone Hcl Ir 5 Mg Tab (Immediate Release)) 5 mg PO Q3H PRN PRN Reason: Pain Stop: 08/01/25 22:35 Last Admin: 07/19/25 02:01 Dose: 5 mg Documented By: EDMAR Sodium Chloride (Sodium Chloride 1 Gm Tablet) 3 gm PO DAILY AMINATA Stop: 08/18/25 08:59 Last Admin: 07/19/25 08:42 Dose: 3 gm Documented By: alberto Umeclidinium [place] (Umeclidinium [place] 62.5mcg/Blister 7 Puffs/Inhaler) 1 puffs INH QAM AMINATA Stop: 08/18/25 08:59 Last Admin: 07/19/25 08:42 Dose: 1 puffs Documented By: alberto
[2025-07-19 16:16] LABS: Cholesterol 156.0 mg/dl (0-200); HDL Cholesterol 54.0 mg/dl; Triglycerides 136.0 mg/dl (0-150)
--- NOTE | 2025-07-19 16:36 | Anesthesiology Consultation ---
Date of Service July 19, 2025 Assessment & Plan (1) Encounter for pre-operative examination: Chart Review Chart Review: Acceptable Risk for Surgery History Surgery Operation Date: 07/19/25 15:00 Proposed Procedures p Left Partial 5th Ray Amputation - Franklin Zhou DPM Height/Weight Height: 5 ft 5 in Weight: 86.7 kg Allergies Allergy/AdvReac Type Severity Reaction Status Date / Time bee venom protein (honey bee) Allergy Severe ANAPHYLAXIS Verified 07/18/25 20:06 latex Allergy Severe ANAPHYLAXIS Verified 07/18/25 20:06 adhesive Allergy Unknown TAPE - Verified 07/18/25 20:06 SKIN IRRITATION allopurinol Allergy Unknown UNKNOWN Verified 07/18/25 20:06 flurbiprofen Allergy Unknown UNKNOWN Unverified 07/18/25 20:06 vitamin E (d-alpha Allergy Unknown Rash Verified 07/18/25 20:06 tocopherol) NSAIDS (Non-Steroidal AdvReac Unknown UNKNOWN Verified 07/18/25 20:06 Anti-Inflamma Medications Home Medications Medication Instructions Recorded Confirmed Last Taken aspirin 81 mg tablet 81 mg PO DAILY ##0 03/17/13 07/18/25 Unknown epinephrine 0.3 mg/0.3 mL 0.3 mg IM UD PRN Allergic Reaction 09/28/15 07/18/25 Unknown injection, auto-injector (EpiPen) ##0 folic acid 1 mg tablet 1 mg PO DAILY ##0 09/28/15 07/18/25 Unknown albuterol sulfate 90 mcg/actuation 2 puff inhalation Q4H PRN WHEEZING 07/18/25 07/18/25 Unknown aerosol inhaler OR COUGH atorvastatin 20 mg tablet 20 mg PO DAILY 07/18/25 07/18/25 07/17/25 cephalexin 500 mg capsule 500 mg PO BID 07/18/25 07/18/25 Unknown empagliflozin 10 mg tablet 10 mg PO DAILY 07/18/25 07/18/25 07/17/25 (Jardiance) hydrocodone 5 mg-acetaminophen 325 1 tab PO QID PRN Pain 07/18/25 07/18/25 Unknown mg tablet insulin glargine 100 unit/mL (3 27 unit subcut HS 07/18/25 07/18/25 Unknown mL) subcutaneous pen (Lantus Solostar U-100 Insulin) levothyroxine 88 mcg tablet 88 mcg PO DAILY 07/18/25 07/18/25 07/17/25 lisinopril 10 mg tablet 10 mg PO DAILY 07/18/25 07/18/25 Unknown losartan 25 mg tablet 25 mg PO QAM 07/18/25 07/18/25 Unknown sodium chloride 1,000 mg soluble 3,000 mg PO DAILY 07/18/25 07/18/25 07/17/25 tablet tirzepatide 7.5 mg/0.5 mL 7.5 mg subcut WK 07/18/25 07/18/25 Unknown subcutaneous pen injector (Flaco) Active Medications Generic Name Dose Route Start Last Admin Trade Name Crq PRN Reason Stop Dose Admin Aspirin 81 mg 07/19/25 09:00 07/19/25 08:41 Aspirin 81 Mg Ectab PO 08/18/25 08:59 81 mg DAILY AMINATA Administration Atorvastatin Calcium 20 mg 07/19/25 09:00 07/19/25 08:41 Atorvastatin 20 Mg Tab PO 08/18/25 08:59 20 mg DAILY AMINATA Administration Enoxaparin Sodium 40 mg 07/18/25 23:00 07/18/25 23:15 Enoxaparin Inj 40 Mg/0.4 Ml Syr SQ 08/17/25 22:59 40 mg Q24H AMINATA Administration Folic Acid 1 mg 07/19/25 09:00 07/19/25 08:41 Folic Acid 1 Mg Tab PO 08/18/25 08:59 1 mg DAILY AMINATA Administration Hydroxychloroquine Sulfate 400 mg 07/18/25 22:45 07/18/25 23:15 Hydroxychloroquine Sulfate 200 Mg Tab PO 08/17/25 22:44 400 mg HS AMINATA Administration Piperacillin Sod/Tazobactam Sod 4.5 gm in 100 mls @ 25 mls/hr 07/19/25 04:00 07/19/25 15:39 Zosyn IV 07/26/25 03:59 Infused Q8H AMINATA Infusion Protocol Insulin Aspart 0 units 07/19/25 06:00 07/19/25 12:39 Insulin Aspart Per Unit Charge SC 08/18/25 05:59 1 units Q6 AMINATA Administration Levothyroxine Sodium 88 mcg 07/19/25 06:30 07/19/25 04:10 Levothyroxine Sodium 88 Mcg Tablet PO 08/18/25 06:29 88 mcg DAILYBB AMINATA Administration Lisinopril 20 mg 07/18/25 22:45 07/19/25 08:41 Lisinopril 20 Mg Tab PO 08/17/25 22:44 20 mg DAILY AMINATA Administration Losartan Potassium 100 mg 07/18/25 22:45 07/19/25 08:41 Losartan Potassium 50 Mg Tab PO 08/17/25 22:44 100 mg QAM AMINATA Administration Miscellaneous 1 each 07/19/25 08:59 07/19/25 08:40 Remove Nicoderm Patch N/A 08/18/25 08:58 Not Given DAILY@0859 AMINATA Nicotine 1 patch 07/19/25 09:00 07/19/25 08:43 Nicotine 21 Mg/24 Hr Tdsy TD 08/18/25 08:59 Not Given QAM AMINATA Oxycodone HCl 5 mg 07/18/25 22:36 07/19/25 02:01 Oxycodone Hcl Ir 5 Mg Tab (Immediate Release) PO 08/01/25 22:35 5 mg Q3H PRN Administration Pain Sodium Chloride 3 gm 07/19/25 09:00 07/19/25 08:42 Sodium Chloride 1 Gm Tablet PO 08/18/25 08:59 3 gm DAILY AMINATA Administration Umeclidinium [place] 1 puffs 07/19/25 09:00 07/19/25 08:42 Umeclidinium [place] 62.5mcg/Blister 7 Puffs/Inhaler INH 08/18/25 08:59 1 puffs QAM AMINATA Administration NPO Date Last Intake of Fluids: 07/19/25 Time Last Intake of Fluids: 00:00 Date Last Intake of Solids: 07/18/25 Time Last Intake of Solids: 12:00 Past Medical History Medical History (Updated 07/19/25 @ 16:40 by Ovidio Archer MD) COPD (chronic obstructive pulmonary disease) Insulin-requiring or dependent type II diabetes mellitus Hypertension, uncontrolled Hypothyroid RITTER (nonalcoholic steatohepatitis) Past Surgical History Surgical History (Updated 07/19/25 @ 16:39 by Ovidio Archer MD) Hx of colonoscopy Hx of hysterectomy Social History Smoking Status: Current every day smoker Do You Dip or Chew Tobacco: No Hx Alcohol Use: No Hx Substance Use: No Physical Exam Vital Signs Last Vital Signs Temp 36.6 C 07/19/25 16:21 Pulse 69 07/19/25 16:21 Resp 15 07/19/25 16:21 BP 159/92 H 07/19/25 16:21 Pulse Ox 96 07/19/25 16:21 O2 Del Method Room Air 07/19/25 16:21 Testing Laboratory Results 07/19/25 05:35 07/19/25 05:35 PT 10.6 Seconds (9.0-12.0) 07/18/25 18:45 INR 1.0 (0.9-1.1) 07/18/25 18:45 APTT 25 Seconds (21-31) 07/18/25 18:45 Hemoglobin A1c 9.6 % (4.5-5.6) H 07/19/25 05:35 07/19/25 Unknown Gram Stain - Final Toe,Left Fifth 07/19/25 07/19/25 07/19/25 16:13 12:14 06:12 POC Glucose 140 H 161 H 203 H
[2025-07-19] MEDS ORDERED: ATROPINE SULFATE 0.1 MG/ML 10ML SYR IV PRN (16:41)
[2025-07-19] MEDS ORDERED: ONDANSETRON INJ 2 MG/ML 2 ML VIAL IV PRN (16:41)
[2025-07-19] MEDS ORDERED: ONDANSETRON INJ 2 MG/ML 2 ML VIAL ONE (16:44)
[2025-07-19] MEDS ORDERED: PROPOFOL IV EMULSION 10 MG/ML 20 ML VIAL IV ONE ×2 (16:44→16:47)
[2025-07-19] MEDS ORDERED: LIDOCAINE 2% 2 ML VIAL/AMP(20MG/ML) INFIL ONE (16:44)
[2025-07-19] MEDS ORDERED: GLYCOPYRROLATE 0.2 MG/ML VIAL ONE (16:47)
[2025-07-19] MEDS: BUPIVACAINE 0.5 % 5 MG/1 ML MPF 30ML VIAL ONE (16:53)
[2025-07-19] MEDS: LIDOCAINE 1% LOCAL 20 ML VIAL ONE (16:53)
[2025-07-19] MEDS ORDERED: PHENYLEPHRINE 100MCG/ML 5ML SYR ONE (17:32)
--- NOTE | 2025-07-19 17:34 | Post Operative Brief Note ---
PG Immediate Post Op with CF Date of Surgery July 19, 2025 Pre & Post Diagnosis Operation Date: 07/19/25 15:00 Pre-Op Diagnosis: (1) Diabetic ulcer of left foot associated with type 2 diabetes mellitus, with necrosis of bone Post-Op Diagnosis: (1) Diabetic ulcer of left foot associated with type 2 diabetes mellitus, with necrosis of bone I identified the patient and participated in the time-out.: Yes Procedure Operation Date: 07/19/25 15:00 Actual Procedures p Left Partial 5th Ray Amputation(Left) - Franklin Zhou DPM Surgeon Franklin Zhou DPM Management Tech none Estimated Blood Loss 5 Findings Consistent with Post-Op Diagnosis Specimens Specimen Description: Pathology: A. Left fifth Toe B. Left Fifth Toe Proximal Margin Microbiology 1. Left Fifth Toe Proximal Margin for Culture Complications none
--- NOTE | 2025-07-19 18:00 | Anesthesiology Progress Note ---
Date of Service July 19, 2025 Anesthesia Post Procedure Vital Signs Vital Signs: Temp Pulse Pulse Pulse Pulse Resp BP 07/19/25 17:50 80 18 07/19/25 17:42 36.5 C 75 16 07/19/25 16:21 36.6 C 69 15 07/19/25 09:18 07/19/25 07:06 69 16 07/19/25 04:15 07/18/25 22:30 07/18/25 22:30 36.6 C 83 16 07/18/25 21:39 07/18/25 20:30 82 20 07/18/25 20:11 84 20 07/18/25 18:52 81 19 07/18/25 18:22 36.4 C L 89 20 205/108 H BP Pulse Ox O2 Del Method O2 Flow Rate 07/19/25 17:50 115/73 98 Nasal Cannula 4 07/19/25 17:42 114/68 96 Nasal Cannula 4 07/19/25 16:21 159/92 H 96 Room Air 07/19/25 09:18 Room Air 07/19/25 07:06 115/65 90 Room Air 07/19/25 04:15 113/69 07/18/25 22:30 Room Air 07/18/25 22:30 205/106 H 97 Room Air 07/18/25 21:39 Room Air 07/18/25 20:30 187/98 H 96 Room Air 07/18/25 20:11 204/116 H 98 Room Air 07/18/25 18:52 185/91 H 96 Room Air 07/18/25 18:22 97 Room Air Transfer of Care Handoff Completed per policy Notes Mental Status: alert / awake / arousable Patient Amnestic to Procedure: Yes Nausea / Vomiting: adequately controlled Pain: adequately controlled Airway Patency, RR, SpO2: stable & adequate BP & HR: stable & adequate Hydration State: stable & adequate Anesthetic Complications: no major complications apparent
[2025-07-19] MEDS: LANTUS PER UNIT CHARGE SQ SCH (22:02)
--- NOTE | 2025-07-19 22:44 | Operative Report ---
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 Fifth toe left foot the pathology 2. Proximal margin fifth left foot metatarsal to pathology 3. Bone fifth metatarsal left foot for culture Drains None Complications None Description of Procedure Patient is brought in the operating room and left on the hospital litter for procedure. She remains in supine position. Anesthesia is performed by the anesthesia team. Local anesthesia is obtained about the patient's left fifth ray utilizing a total of 12 cc of one-to-one mixture of half percent Marcaine plain and 1% lidocaine plain in a modified Peters block fashion about the fifth ray. Timeout is held confirming correct patient, site, site, procedure with illness or parties confirming. The left lower extremity is scrubbed prepped and draped in usual aseptic fashion the level of well-padded ankle tourniquet. Attention is directed to the patient's right lateral foot where ulceration is noted overlying the fifth metatarsal head laterally. An elliptical incision is planned about the patient's ulceration encompassing the base of the fifth digit. Incision is created with a 15 blade and carried deep to the level of bone. Tourniquet is inflated to 250 mmHg without exsanguination of the foot. Fifth toe was disarticulated at the metatarsophalangeal joint and passed from the operative field placed in a blue top vessel to be sent to pathology for gross pathologic analysis. Tendinous structures within the wound bed are pulled distally and cut and allowed to retract into more proximal soft tissues. Sharp and blunt dissection is carried out about the distal quarter of the fifth metatarsal. Sagittal saw was utilized to resect the fifth metatarsal from dorsal distal lateral to plantar proximal medial. The distal aspect of the fifth metatarsal was passed from the operative field and placed in a blue top ve ssel to be sent for pathologic analysis proximal margin fifth metatarsal left foot. Again any tendinous structures within the wound bed or bluntly dissected pulled distally cut allowing them to retract into more proximal viable soft tissues. Wound is flushed with copious months of normal sterile saline. Wound is evaluated and noted to be free of any necrotic debris. Tourniquet is released and a prompt hyperemic response is noted to the left foot. Total tourniquet time is 10 minutes. Hemostasis is achieved with direct pressure and electrocautery. Wound is flushed with copious amounts normal sterile saline. Subcutaneous tissues were reapproximated and closed with 3-0 Vicryl suture to reduce space. Wound edges were reapproximated and closed with 4-0 nylon in simple interrupted suturing technique. Foot is cleansed with normal sterile saline dried and dressed with Betadine soaked Adaptic 4 x 4 fluff gauze ABD pad x 3, Leena and a lightly applied Charanjit bandage to hold dressings in place. Patient tolerated the procedure and anesthesia well. She is transferred to the recovery room with vital signs stable and vascular status intact to remaining digits of the left foot. Following a brief period of postoperative monitoring in the recovery room patient is transferred back to her bed on the medical surgical floor for ongoing medical management and IV antibiotic therapy. Pat ient to remain nonweightbearing until first dressing change. At that point patient will be able to weight-bear in a postoperative shoe for short distances and transfer. I attest to the content of the Intraoperative Record and any orders documented therein. Any exceptions are noted below.
[2025-07-20 08:37] LABS: Alanine Aminotransferase 26.0 U/L (7-52); Albumin Globulin Ratio 0.9 (0.9-2); Albumin Level 3.5 gm/dl (3.4-5.0); Alkaline Phosphatase 119.0 U/L (34-104); Anion Gap 7.0 (3-11); Bilirubin,Total 0.5 mg/dl (0.2-1.0); Blood Urea Nitrogen 15.0 mg/dl (6-23); Calcium 8.8 mg/dl (8.6-10.3); Carbon Dioxide 28.0 mmol/L (21-32); Chloride 98.0 mmol/L (98-107); Creatinine Clr Calc Pharmacy 84.6 ml/min; Globulin 3.7 gm/dl (2.5-4.0); Glucose 128.0 mg/dl (70-99(Fasting)); Magnesium 1.9 mg/dl (1.7-2.4); Potassium 4.3 mmol/L (3.5-5.1); Sodium 133.0 mmol/L (136-145); Total Protein 7.2 gm/dl (6.0-8.3)
--- NOTE | 2025-07-20 10:14 | Podiatry Progress Note ---
Date of Service July 20, 2025 Assessment & Plan (1) Foot osteomyelitis, left: (2) Status post amputation of toe of left foot: Plan Postop day 1 status post partial fifth ray amputation left foot for treatment of osteomyelitis surrounding the fifth metatarsal phalangeal joint. Surgical dressing changed in aseptic fashion without issue. Order placed for high tide Cam walker. Patient okay to initiate weightbearing as tolerated once cam walker has been fit and evaluated by physical therapy. - Pathology fifth metatarsal proximal margin 07/19/2025: Pending - Intraoperative bone culture fifth metatarsal right foot: Pending Admission and Anticipated Discharge Date Admission Date: July 18, 2025 Subjective Patient postop day 1 status post left partial fifth ray amputation. Seen resting comfortably in hospital bed. Denies pain in the left foot. Surgical dressing remains clean dry and intact. Review of Systems Review of Systems: Denies nausea, vomiting, fever, chills, shortness of breath, chest pain. Reports mild pain in the left foot amputation site. Physical Exam Physical Exam: Const: Appears well developed and well nourished. No signs of acute distress present. CV: Extremities: No cyanosis or edema. Capillary refill time is less than 2 seconds all digits of the bilateral foot. Posterior tibial and dorsalis pedis pulses are lightly palpable bilateral. Lymph: No palpable or visible regional lymphadenopathy. Neuro: Loss of protective sensation bilateral plantar foot Psych: Mood/Affect: Mood is normal. Affect is normal. Cognition: Orientation is intact to person, place and time. Focused lower extremity musculoskeletal exam: Leg: No pain with compression of the calf muscle. Ankles: Normal to inspection and palpation. No swelling bilaterally. No tenderness bilaterally.Motor strength is intact. Range of motion pain-free and unlimited. Feet: Postop day 1 status post partial fifth ray amputation left foot. Wound edges well-approximated with all sutures intact. No active drainage. Mild pedrito-incisional erythema. No lymphangitis or streaking. Results & Data Results & Data Vital Signs (Past 12 Hours) Vital Signs Temp Pulse Pulse Resp BP Pulse Ox O2 Del Method 07/20/25 09:29 36.7 C 72 16 154/79 H 98 Room Air 07/20/25 04:21 36.7 C 80 20 158/77 H 92 Room Air 07/20/25 01:32 36.5 C 72 16 130/72 95 Room Air Coding Level of Care Code 40764 SUB INP/OBS CARE Diagnoses Foot osteomyelitis, left M86.9 Status post amputation of toe of left foot Z89.422
--- NOTE | 2025-07-20 10:14 | Pharmacy Report ---
Pharmacy Glycemic Short Note 2 - Date of Service July 20, 2025 - Glycemic Short BSG Results (Last 24 hours): 07/19/25 07/19/25 07/19/25 12:14 16:13 17:45 Glucose POC Glucose 161 H 140 H 128 H 07/19/25 07/19/25 07/20/25 18:48 21:31 07:11 Glucose 128 H POC Glucose 136 H 154 H 07/20/25 07:30 Glucose POC Glucose 120 H OUTPATIENT ANTIDIABETIC REGIMEN: * Lantus 27 units HS, Mounjaro weekly, jardiance 10 mg daily HbA1c: 9.6% on 07/19/25 ASSESSMENT: 07/20: * Candace received a total of 29 units of insulin yesterday (23 units were basal and 6 units were bolus). BSGs were 273-405-635-154mg/dL. * Fasting BSG was 120mg/dL this morning dropped below goal at lunch time. Lantus scale at HS was decreased. Will now receive 0, 15, or 25 unit dep ending on BSG. * Loosened parameters of bolus insulin as blood glucose has been trending down over the last 24 hours. 07/19: * Patient with hx of type II diabetes admitted with left toe osteomyelitis. * Currently NPO- BSGs have trended down since admission yesterday- received 30 units of lantus * Will continue with parameters similar to weight stress 3 PLAN FOR INPATIENT GLYCEMIC CONTROL: * Hold outpatient oral diabetes medications * Basal insulin * Lantus scale at HS (0, 15, or 25 units depending on BSG) * Bolus insulin * NovoLog per scale ACHS or Q6hrs while NPO * Goal Range: Low 120 mg/dL - High 160 mg/dL * Correction Factor: 30 mg/dL/unit * Nutritional / Prandial insulin per carb ratio of 1 unit per 10 grams CHO consumed
--- NOTE | 2025-07-20 15:35 | Hospitalist Progress Note ---
Date of Service July 20, 2025 Assessment & Plan (1) Foot osteomyelitis, left: (2) Insulin-requiring or dependent type II diabetes mellitus: (3) COPD (chronic obstructive pulmonary disease): (4) Hypertension, uncontrolled: (5) Dyslipidemia: (6) Hypothyroid: (7) Rheumatoid arthritis: (8) Nicotine dependence: (9) RITTER (nonalcoholic steatohepatitis): (10) Sleep apnea: Plan 65 yo female with pmhx diabetes, COPD, hypertension, rheumatoid arthritis, and dyslipidemia was made aware by her significant other that she had a black spot on the lateral aspect of her left foot on Friday 2/2 osteomyelitis. #Left 5th Digit Osteomyelitis -noted on MRI -likely 2/2 uncontrolled diabetes, HLD Plan: -podiatry consulted, appreciate recs -LE duplex ordered per podiatry -possible partial amputation ordered for later in afternoon, patient has been NPO -PT/OT ordered for post procedure 07/19 s/p Ray Amputation L 5th digit - Pathology fifth metatarsal proximal margin 07/19/2025: Pending - Intraoperative bone culture fifth metatarsal right foot: Pending will consult ID for abx recommendations continue ZOsyn #DM Type 2 -A1c of 9.6 represents under controlled -likely cause of above Plan: -pharmacy glycemic control consult -continue farxiga -grants director, in service educator consults, appreciate recs #COPD -continue albuterol #Hypothyroidism -may need dose increase outpatient -recheck TSH in 3 months #HTN #HLD -continue statin, aspirin, losartan -check lipids, may need statin increase #Rheumatoid Arthritis -f/u outpatient Admission and Anticipated Discharge Date Admission Date: July 18, 2025 Subjective seen resting in bed, sitting up, comfortable states she feels fine overall pain well controlled no chest pain, dyspnea, palpitations, dizziness no other new symptoms Review of Systems Review of Systems: all noted and negative except for above Physical Exam Physical Exam: General- oriented x 3, not in distress, speaks in sentences with no effort or accessory muscle use Eyes- anicteric Neck- no JVD Lungs- clear breath sounds bilaterally, no rales/wheezes Heart- normal rate, regular rhythm; no murmurs Abdomen- normal bowel sounds, nondistended, soft, nontender Extremities- RLE: no pretibial edema, no calf tenderness LLE:cam walker boot in place Neuro- alert, oriented x 3; no gross focal neurologic deficits Skin- warm & dry Results & Data Results & Data Vital Signs (Past 12 Hours) Vital Signs Temp Pulse Pulse Pulse Resp BP Pulse Ox 07/20/25 15:28 36.4 C L 74 17 172/74 H 98 07/20/25 09:29 36.7 C 72 16 154/79 H 98 07/20/25 07:20 07/20/25 04:21 36.7 C 80 20 158/77 H 92 O2 Del Method 07/20/25 15:28 Room Air 07/20/25 09:29 Room Air 07/20/25 07:20 Room Air 07/20/25 04:21 Room Air all noted and reviewed including below
[2025-07-20] MEDS: ADVANCED PROBIOTIC 625 MG CAPSULE PO SCH (16:27)
[2025-07-20] MEDS: MELATONIN 3 MG TAB PO PRN (23:40)
[2025-07-21 06:23] LABS: Alanine Aminotransferase 28.0 U/L (7-52); Albumin Globulin Ratio 0.9 (0.9-2); Albumin Level 3.5 gm/dl (3.4-5.0); Alkaline Phosphatase 119.0 U/L (34-104); Anion Gap 7.0 (3-11); Bilirubin,Total 0.6 mg/dl (0.2-1.0); Blood Urea Nitrogen 11.0 mg/dl (6-23); Calcium 9.0 mg/dl (8.6-10.3); Carbon Dioxide 26.0 mmol/L (21-32); Chloride 100.0 mmol/L (98-107); Creatinine Clr Calc Pharmacy 104.4 ml/min; Globulin 3.9 gm/dl (2.5-4.0); Glucose 120.0 mg/dl (70-99(Fasting)); Potassium 3.9 mmol/L (3.5-5.1); Sodium 133.0 mmol/L (136-145); Total Protein 7.4 gm/dl (6.0-8.3)
--- NOTE | 2025-07-21 11:57 | Hospitalist Progress Note ---
Date of Service July 21, 2025 Assessment & Plan (1) Foot osteomyelitis, left: (2) Insulin-requiring or dependent type II diabetes mellitus: (3) COPD (chronic obstructive pulmonary disease): (4) Hypertension, uncontrolled: (5) Dyslipidemia: (6) Hypothyroid: (7) Rheumatoid arthritis: (8) Nicotine dependence: (9) RITTER (nonalcoholic steatohepatitis): (10) Sleep apnea: Plan 65 yo female with pmhx diabetes, COPD, hypertension, rheumatoid arthritis, and dyslipidemia was made aware by her significant other that she had a black spot on the lateral aspect of her left foot on Friday 2/2 osteomyelitis. #Left 5th Digit Osteomyelitis -noted on MRI -likely 2/2 uncontrolled diabetes, HLD Plan: -podiatry consulted, appreciate recs -LE duplex ordered per podiatry -possible partial amputation ordered for later in afternoon, patient has been NPO -PT/OT ordered for post procedure 07/19 s/p Ray Amputation L 5th digit - Pathology fifth metatarsal proximal margin 07/19/2025: Pending - Intraoperative bone culture fifth metatarsal right foot: Pending will consult ID for abx recommendations continue ZOsyn 07/20 stable ff up pathology results continue IV Zosyn awaiting ID recommendations #DM Type 2 -A1c of 9.6 represents under controlled -likely cause of above Plan: -pharmacy glycemic control consult -continue farxiga -product operations associate, in service educator consults, appreciate recs #COPD -continue albuterol #Hypothyroidism -may need dose increase outpatient -recheck TSH in 3 months #HTN #HLD -continue statin, aspirin, losartan -check lipids, may need statin increase #Rheumatoid Arthritis -f/u outpatient DVT prophylaxis Lovenox XC Disposition pending anticipate d/c home when cleared by Podiatry and antibiotic recommendations finalized by ID Admission and Anticipated Discharge Date Admission Date: July 18, 2025 Subjective seen sitting up in bed, comfortable states she feels fine overall denies pain of the foot, or leg no chest pain, dyspnea, palpitations, dizziness no other symptoms Review of Systems Review of Systems: all noted and negative except for above Physical Exam Physical Exam: General- oriented x 3, not in distress, speaks in sentences with no effort or accessory muscle use Eyes- anicteric Neck- no JVD Lungs- clear breath sounds bilaterally, no rales/wheezes Heart- normal rate, regular rhythm; no murmurs Abdomen- normal bowel sounds, nondistended, soft, nontender Extremities- no pretibial edema, no calf tenderness L foot: (+) boot in place Neuro- alert, oriented x 3; no gross focal neurologic deficits Skin- warm & dry Results & Data Results & Data Vital Signs (Past 12 Hours) Vital Signs Temp Pulse Resp BP Pulse Ox O2 Del Method 07/21/25 08:00 Room Air 07/21/25 07:30 36.6 C 66 16 161/82 H 94 Room Air all noted and reviewed including below
[2025-07-22 08:06] LABS: Anion Gap 8.0 (3-11); Blood Urea Nitrogen 11.0 mg/dl (6-23); Calcium 8.9 mg/dl (8.6-10.3); Carbon Dioxide 25.0 mmol/L (21-32); Chloride 100.0 mmol/L (98-107); Creatinine Clr Calc Pharmacy 113.8 ml/min; Glucose 118.0 mg/dl (70-99(Fasting)); Potassium 4.0 mmol/L (3.5-5.1); Sodium 133.0 mmol/L (136-145)
--- NOTE | 2025-07-22 14:17 | Infectious Disease Consult ---
Date of Service July 22, 2025 Telehealth Information I performed this visit using a real-time telehealth connection between my location and the patients location ([facility]). After connecting through interactive tele-video, patient was identified by name and date of and/or wristband check.Patient (or authorized healthcare site safety representative) was informed that this was a telemedicine visit and it was being conducted confidentially over secure lines. My office door was closed and no one else was present in the room with me.Patient (or authorized healthcare site safety representative) provided consent to proceed with the visit, expressed an understanding of privacy and security of the telemedicine visit, and gave permission to have a hospital site safety representative in the room in order to assist with the visit and to conduct portions of the visit, as needed. I informed the patient (or authorized healthcare site safety representative) that I reviewed their record and presented the opportunity for them to ask any questions regarding the visit today. The patient agreed to participate. Assessment & Plan (1) Cellulitis of left foot: (2) Osteomyelitis of fifth toe of left foot: Plan: Assessment: Osteomyeltitis of L 5th MT DFI of L 5th toe Hx of MRSA infection Hx of IDDM II, rheumatoid arthritis, COPD, HTN, and RITTER S/p partial L 5th ray amputation (07/19/25) Recommendations: - I agree w/ piperacillin-tazobactam 4.5 gm iv q8 hours - Anticipate total 3 weeks: last dose on 08/09/25 - F/u OR cultures for final result just in case they grow organisms resistant to current abx - Check weekly CRP, CMP and CBC w/ diff while on abx therapy - May place a midline: please, remove the line once done with abx therapy - the patient prefers to follow up w/ her PCP rather than ID as outpatient: ID will follow the weekly lab result - Probiotic while on abx therapy - I emphasized the importance of following up w/ podiatry for wound care - ID signing off. During this patient encounter, one or more of the following was provided in addition to my in person visit: disease transmission risk assessment and mitigation; public health investigation, analysis, and testing; and/or complex antimicrobial therapy counseling and treatment. I spent a total of 65 minutes coordinating, documenting, and providing care for this patient excluding time spent in the performance of separately billed services or time spent by another provider/QHP. History of Present Illness History of Present Illness This is a 65 y/o female (Candace) w/ hx of IDDM II, rheumatoid arthritis, COPD, HTN, hypothyroidism, MRSA infection, and RITTER, who presented on 07/18/25 for OM and necrotic hematoma over L fifth MT: she had a black spot on the lateral aspect of L foot on 07/16/25 w/ mild pain. The XR done as outpatient showed findings suggestived of OM. No fever but elevated CRP w/ MRI showing nonspecific edema distal 5th metatarsal, suspicious of osteomyelitis, given surrounding skin ulceration. Had partial L 5th ray amputation (07/19/25). She is resting comfortably in bed. No specific complaint. Denies any pain, sob, coughing, f/c, n/v, abd pain, diarrhea or urinary symptoms. Denies frequent use of antibiotics. Kilo, patients , was at bedside during the encounter. Allergies Allergy/AdvReac Type Severity Reaction Status Date / Time bee venom protein (honey bee) Allergy Severe ANAPHYLAXIS Verified 07/18/25 20:06 latex Allergy Severe ANAPHYLAXIS Verified 07/18/25 20:06 adhesive Allergy Unknown TAPE - Verified 07/18/25 20:06 SKIN IRRITATION allopurinol Allergy Unknown UNKNOWN Verified 07/18/25 20:06 flurbiprofen Allergy Unknown UNKNOWN Unverified 07/18/25 20:06 vitamin E (d-alpha Allergy Unknown Rash Verified 07/18/25 20:06 tocopherol) NSAIDS (Non-Steroidal AdvReac Unknown UNKNOWN Verified 07/18/25 20:06 Anti-Inflamma Home Medications Medication Instructions Recorded Confirmed Type aspirin 81 mg tablet 81 mg PO DAILY ##0 03/17/13 07/18/25 History epinephrine 0.3 mg/0.3 mL 0.3 mg IM UD PRN Allergic Reaction 09/28/15 07/18/25 History injection, auto-injector (EpiPen) ##0 folic acid 1 mg tablet 1 mg PO DAILY ##0 09/28/15 07/18/25 History albuterol sulfate 90 mcg/actuation 2 puff inhalation Q4H PRN WHEEZING 07/18/25 07/18/25 History aerosol inhaler OR COUGH atorvastatin 20 mg tablet 20 mg PO DAILY 07/18/25 07/18/25 History cephalexin 500 mg capsule 500 mg PO BID 07/18/25 07/18/25 History empagliflozin 10 mg tablet 10 mg PO DAILY 07/18/25 07/18/25 History (Jardiance) hydrocodone 5 mg-acetaminophen 325 1 tab PO QID PRN Pain 07/18/25 07/18/25 History mg tablet insulin glargine 100 unit/mL (3 27 unit subcut HS 07/18/25 07/18/25 History mL) subcutaneous pen (Lantus Solostar U-100 Insulin) levothyroxine 88 mcg tablet 88 mcg PO DAILY 07/18/25 07/18/25 History lisinopril 10 mg tablet 10 mg PO DAILY 07/18/25 07/18/25 History losartan 25 mg tablet 25 mg PO QAM 07/18/25 07/18/25 History sodium chloride 1,000 mg soluble 3,000 mg PO DAILY 07/18/25 07/18/25 History tablet tirzepatide 7.5 mg/0.5 mL 7.5 mg subcut WK 07/18/25 07/18/25 History subcutaneous pen injector (Mounjaro) Patient History Medical History (Updated 07/22/25 @ 14:17 by Misty Sood MD) COPD (chronic obstructive pulmonary disease) Insulin-requiring or dependent type II diabetes mellitus Hypertension, uncontrolled Hypothyroid RITTER (nonalcoholic steatohepatitis) Surgical History (Updated 07/20/25 @ 10:17 by Franklin Zhou DPM) Hx of colonoscopy Hx of hysterectomy Social History Smoking Status: Current every day smoker Tobacco Type: Cigarettes Second Hand Exposure: Yes; Do You Dip or Chew Tobacco: No; Tobacco Cessation Education Requested by Patient: No Hx Alcohol Use: No Hx Substance Use: No Preferred Language: Gabonese Communication Ability: Effective Obstetrician And Gynaecologist Required: No Beliefs That Will Affect Care: None Current Living Situation: Spouse and Family Current Living Situation Comment: Lives at home with Fiance, son, and 2 grandkids Other Information That Helps Us Care for You: No Feels Safe at Home: Yes Safety Concerns: Feels Safe At This Time Assistive Devices: None Review of Systems as HPI and all others negative Physical Exam Gen: no acute distress Lungs: breathing comfortably on room air Neuro: AAOx3 Results & Data Vital Signs (Past 12 Hours) Vital Signs Temp Pulse Resp BP Pulse Ox O2 Del Method 07/22/25 07:44 36.6 C 67 20 160/89 H 95 Room Air Laboratory Results WBC 7.19K H 13.3 Plt 231K Cr 0.55 (CrCl 114) LFT unremarkable CRP (07/18): 2.99 MRSA screen (07/18): neg Blood cx (07/18): NGTD Wound cx toe (07/19): low counts mixed probable skin microbiota Wound cx toe (07/19): NGTD Diagnostic Findings MRI foot (07/18): 1. Nonspecific edema distal 5th metatarsal, suspect osteomyelitis, given surrounding skin ulceration. 2. Crescentic fluid deep to skin ulceration, nonspecific, small abscess or septic arthritis difficult to exclude. 3. Severe arthritis, multiple levels. 4. Moderate motion/artifact. Medications Administered Zosyn (07/19-)
--- NOTE | 2025-07-22 20:48 | Hospitalist Progress Note ---
Date of Service July 22, 2025 delayed entry date of service noted above Assessment & Plan (1) Foot osteomyelitis, left: (2) Insulin-requiring or dependent type II diabetes mellitus: (3) COPD (chronic obstructive pulmonary disease): (4) Hypertension, uncontrolled: (5) Dyslipidemia: (6) Hypothyroid: (7) Rheumatoid arthritis: (8) Nicotine dependence: (9) RITTER (nonalcoholic steatohepatitis): (10) Sleep apnea: Plan 65 yo female with pmhx diabetes, COPD, hypertension, rheumatoid arthritis, and dyslipidemia was made aware by her significant other that she had a black spot on the lateral aspect of her left foot on Friday 2/2 osteomyelitis. #Left 5th Digit Osteomyelitis -noted on MRI -likely 2/2 uncontrolled diabetes, HLD Plan: -podiatry consulted, appreciate recs -LE duplex ordered per podiatry -possible partial amputation ordered for later in afternoon, patient has been NPO -PT/OT ordered for post procedure 07/19 s/p Ray Amputation L 5th digit - Pathology fifth metatarsal proximal margin 07/19/2025: Pending - Intraoperative bone culture fifth metatarsal right foot: Pending will consult ID for abx recommendations continue ZOsyn 07/21 stable ff up pathology results ff up L toe culture continue IV Zosyn awaiting ID recommendations #DM Type 2 -A1c of 9.6 represents under controlled -likely cause of above Plan: -pharmacy glycemic control consult -continue farxiga -deposition operator, peer educator consults, appreciate recs #COPD -continue albuterol #Hypothyroidism -may need dose increase outpatient -recheck TSH in 3 months #HTN #HLD -continue statin, aspirin, losartan -check lipids, may need statin increase #Rheumatoid Arthritis - on Plaquenil -f/u outpatient DVT prophylaxis Lovenox XC Disposition pending anticipate d/c home when cleared by Podiatry and antibiotic recommendations finalized by ID Admission and Anticipated Discharge Date Admission Date: July 18, 2025 Subjective seen resting in bed, comfortable States she feels fine overall Minimal pain Ambulating in the room with no problems No other new symptoms Review of Systems Review of Systems: all noted and negative except for above Physical Exam Physical Exam: General- oriented x 3, not in distress, speaks in sentences with no effort or accessory muscle use Eyes- anicteric Neck- no JVD Lungs- clear breath sounds bilaterally, no rales/wheezes Heart- normal rate, regular rhythm; no murmurs Abdomen- normal bowel sounds, nondistended, soft, nontender Extremities- left lower extremity: Cam boot in place Neuro- alert, oriented x 3; no gross focal neurologic deficits Skin- warm & dry Results & Data Results & Data Vital Signs (Past 12 Hours) Vital Signs Temp Pulse Resp BP Pulse Ox O2 Del Method 07/22/25 15:11 36.5 C 69 17 135/89 95 Room Air all noted and reviewed including below
[2025-07-23] MEDS: MELATONIN 3 MG TAB PO STA (01:03)
--- NOTE | 2025-07-23 07:49 | Podiatry Progress Note ---
Date of Service July 23, 2025 Assessment & Plan (1) Foot osteomyelitis, left: (2) Status post amputation of toe of left foot: Plan Status post partial fifth ray amputation of the left foot 07/19/2025: - Proximal margin pathology pending. Intraoperative culture pending: Pre liminary growing corynebacterium species - Patient evaluated by infectious disease with anticipated 3-week course of IV Zosyn 4.5 mg every 8 hours. Patient plans to follow with PCP for management of PICC line and IV antibiotics following discharge as opposed to infectious disease per ID note. - Patient has been fit with high tide Cam walker by orthotics with offloading at the fifth ray. Reports that she is comfortable donning and doffing the boot and understands this to be worn at all times while weightbearing with the assistance of a walker for stability. Partial fifth ray amputation site is well coped with no signs of local soft tissue infection. She has reasonable amount of ecchymosis with decreased erythema and edema surrounding the lateral foot. Mild pain at the level of the fifth metatarsal remnant. Patient is okay for discharge from podiatry standpoint following finalization of intraoperative pathology and culture results for antibiotic adjustment if needed. Thank you for consulting podiatry to aid in the care of this patient. Will continue to follow while she remains in house and recommend follow-up within 2 weeks of discharge at the podiatry clinic for suture removal and wound reevaluation. Patient would also benefit from follow-up in the diabetic foot clinic within 1 month of discharge for more extensive diabetic foot education and diabetic foot wear in hopes to prevent future ulceration. Admission and Anticipated Discharge Date Admission Date: July 18, 2025 Subjective Patient resting comfortably in hospital bed status post left partial fifth ray amputation 07/19/2025. She has received cam boot from orthotics and has rece ived education on donning and use. Feels comfortable donning the boots and denies issues ambulating with a walker and boot in place. Denies pain to the left foot. PICC line in place. Review of Systems Review of Systems: Denies nausea, vomiting, fever, chills, shortness of breath, chest pain. Denies pain in the left foot. Physical Exam Physical Exam: Const: Appears well developed and well nourished. No signs of acute distress present. CV: Extremities: No cyanosis or edema. Capillary refill time is less than 2 seconds all digits of the bilateral foot. Posterior tibial and dorsalis pedis pulses are lightly palpable bilateral. Lymph: No palpable or visible regional lymphadenopathy. Neuro: Loss of protective sensation bilateral plantar foot Psych: Mood/Affect: Mood is normal. Affect is normal. Cognition: Orientation is intact to person, place and time. Focused lower extremity musculoskeletal exam: Leg: No pain with compression of the calf muscle. Ankles: Normal to inspection and palpation. No swelling bilaterally. No tenderness bilaterally.Motor strength is intact. Range of motion pain-free and unlimited. Feet: status post partial fifth ray amputation left foot 07/19/2025. Wound edges well-approximated with all sutures intact. No active drainage. Mild pedrito-incisional erythema. No lymphangitis or streaking. Results & Data Results & Data Vital Signs (Past 12 Hours) Vital Signs Temp Pulse Pulse Resp BP Pulse Ox O2 Del Method 07/23/25 07:36 Room Air 07/23/25 07:35 36.7 C 61 16 135/73 98 Room Air 07/22/25 22:19 36.7 C 69 18 147/80 H 95 Room Air 07/22/25 21:00 Room Air Coding Level of Care Code 75286 SUB INP/OBS CARE 2/35MIN Diagnoses Other acute osteomyelitis of left foot M86.172 Osteomyelitis type: other acute Status post amputation of toe of left foot Z89.422 (1) Foot osteomyelitis, left Osteomyelitis type: other acute Qualified Code(s): M86.172 - Other acute osteomyelitis, left ankle and foot
--- NOTE | 2025-07-23 15:12 | Hospitalist Progress Note ---
Date of Service July 23, 2025 Assessment & Plan (1) Foot osteomyelitis, left: (2) Insulin-requiring or dependent type II diabetes mellitus: (3) COPD (chronic obstructive pulmonary disease): (4) Hypertension, uncontrolled: (5) Dyslipidemia: (6) Hypothyroid: (7) Rheumatoid arthritis: (8) Nicotine dependence: (9) RITTER (nonalcoholic steatohepatitis): (10) Sleep apnea: Plan 65 yo female with pmhx diabetes, COPD, hypertension, rheumatoid arthritis, and dyslipidemia was made aware by her significant other that she had a black spot on the lateral aspect of her left foot on Friday 2/2 osteomyelitis. #Left 5th Digit Osteomyelitis -noted on MRI -likely 2/2 uncontrolled diabetes, HLD Plan: -podiatry consulted, appreciate recs -LE duplex ordered per podiatry -possible partial amputation ordered for later in afternoon, patient has been NPO -PT/OT ordered for post procedure 07/19 s/p Ray Amputation L 5th digit - Pathology fifth metatarsal proximal margin 07/19/2025: Pending - Intraoperative bone culture fifth metatarsal right foot: Pending will consult ID for abx recommendations continue ZOsyn 07/22 stable ff up pathology results ff up L toe culture continue IV Zosyn ID recommends 3 more weeks of IV Zosyn to complete 4 week course #DM Type 2 -A1c of 9.6 represents under controlled -likely cause of above Plan: -pharmacy glycemic control consult -continue farxiga -status controller, pyrometer temperature regulator consults, appreciate recs #COPD -continue albuterol #Hypothyroidism -may need dose increase outpatient -recheck TSH in 3 months #HTN #HLD -continue atorvastatin, aspirin - continue Lisinopril d/c Losartan - amlodipine added for BP control #Rheumatoid Arthritis - on Plaquenil -f/u outpatient DVT prophylaxis Lovenox XC Disposition pending anticipate d/c home when cleared by Podiatry and IV Zosyn at home set up Admission and Anticipated Discharge Date Admission Date: July 18, 2025 Subjective resting in bed, comfortable feels fine overall pain well controlled no new symptoms Review of Systems Review of Systems: all noted and negative except for above Physical Exam Physical Exam: General- oriented x 3, not in distress, speaks in sentences with no effort or accessory muscle use Eyes- anicteric Neck- no JVD Lungs- clear breath sounds bilaterally Heart- normal rate, regular rhythm; no murmurs Abdomen- normal bowel sounds, nondistended, soft, nontender Extremities- RLE no pretibial edema, no calf tenderness LLE cam boot in place Neuro- alert, oriented x 3; no gross focal neurologic deficits Skin- warm & dry Results & Data Results & Data Vital Signs (Past 12 Hours) Vital Signs Temp Pulse Resp BP Pulse Ox O2 Del Method 07/23/25 07:36 Room Air 07/23/25 07:35 36.7 C 61 16 135/73 98 Room Air all noted and reviewed including below (1) Foot osteomyelitis, left Osteomyelitis type: other acute Qualified Code(s): M86.172 - Other acute osteomyelitis, left ankle and foot
--- NOTE | 2025-07-24 11:19 | Hospitalist Progress Note ---
Date of Service July 24, 2025 Assessment & Plan (1) Osteomyelitis of fifth toe of left foot: (2) Status post amputation of toe of left foot: (3) Diabetic ulcer of left foot associated with type 2 diabetes mellitus, with necrosis of bone: Plan: (1) Foot osteomyelitis, left: (2) Insulin-requiring or dependent type II diabetes mellitus: (3) COPD (chronic obstructive pulmonary disease): (4) Hypertension, uncontrolled: (5) Dyslipidemia: (6) Hypothyroid: (7) Rheumatoid arthritis: (8) Nicotine dependence: (9) RITTER (nonalcoholic steatohepatitis): (10) Sleep apnea: Plan 65 yo female with pmhx diabetes, COPD, hypertension, rheumatoid arthritis, and dyslipidemia was made aware by her significant other that she had a black spot on the lateral aspect of her left foot on Friday 2/2 osteomyelitis. #Left 5th Digit Osteomyelitis -noted on MRI -likely 2/2 uncontrolled diabetes, HLD Plan: -podiatry consulted, appreciate recs -LE duplex ordered per podiatry -possible partial amputation ordered for later in afternoon, patient has been NPO -PT/OT ordered for post procedure 07/19 s/p Ray Amputation L 5th digit - Pathology fifth metatarsal proximal margin 07/19/2025: Pending - Intraoperative bone culture fifth metatarsal right foot: Pending will consult ID for abx recommendations continue ZOsyn 07/24 stable pathology results: pending L toe culture: Corynebacterium species continue IV Zosyn ID recommends 3 more weeks of IV Zosyn to complete 4 week course #DM Type 2 -A1c of 9.6 represents under controlled -likely cause of above Plan: -pharmacy glycemic control consult -continue farxiga -operations consultant, natural resources extension educator consults, appreciate recs #COPD -continue albuterol #Hypothyroidism -may need dose increase outpatient -recheck TSH in 3 months #HTN #HLD -continue atorvastatin, aspirin - continue Lisinopril d/c Losartan - amlodipine added for BP control monitor #Rheumatoid Arthritis - on Plaquenil -f/u outpatient DVT prophylaxis Lovenox XC Disposition pending anticipate d/c home when cleared by Podiatry and IV Zosyn at home set up Admission and Anticipated Discharge Date Admission Date: July 18, 2025 Subjective seen resting in bed, comfortable sitting up states she feels fine no chest pain, dyspnea, palpitations, dizziness pain well controlled ambulating with walker, no problems no other issues Review of Systems Review of Systems: all noted and negative except for above Physical Exam Physical Exam: General- oriented x 3, not in distress, speaks in sentences with no effort or accessory muscle use Eyes- anicteric Neck- no JVD Lungs- clear breath sounds bilaterally no crackles Heart- normal rate, regular rhythm; no murmurs Abdomen- normal bowel sounds, nondistended, soft, nontender Extremities- LLE: cam boot in place Neuro- alert, oriented x 3; no gross focal neurologic deficits Skin- warm & dry Results & Data Results & Data Vital Signs (Past 12 Hours) Vital Signs Temp Pulse Resp BP Pulse Ox O2 Del Method 07/24/25 07:50 36.5 C 64 16 158/83 H 96 Room Air 07/24/25 00:20 Room Air all noted and reviewed including below (3) Diabetic ulcer of left foot associated with type 2 diabetes mellitus, with necrosis of bone Diabetic foot ulcer location: midfoot Qualified Code(s): E11.621 - Type 2 diabetes mellitus with foot ulcer; L97.424 - Non-pressure chronic ulcer of left heel and midfoot with necrosis of bone
--- NOTE | 2025-07-24 12:51 | Pharmacy Report ---
Pharmacy Glycemic Short Note 2 - Date of Service July 24, 2025 - Glycemic Short BSG Results (Last 24 hours): 07/23/25 07/23/25 07/24/25 16:27 20:31 07:44 POC Glucose 119 H 143 H 130 H 07/24/25 11:32 POC Glucose 151 H OUTPATIENT ANTIDIABETIC REGIMEN: * Lantus 27 units HS, Mounjaro weekly, empagliflozin 10 mg PO daily HbA1c: 9.6% on 07/19/25 ASSESSMENT: 07/24/25: * Blood sugars have been very well-controlled over past 72 hours w/ one anomalous elevation yesterday AM (197 mg/dL) * Receiving ~25-30 units of insulin/day (~50/50 basal bolus split) * Do not anticipate any changes to glycemic regimen 07/20: * Candace received a total of 29 units of insulin yesterday (23 units were basal and 6 units were bolus). BSGs were [phone]/dL. * Fasting BSG was 120mg/dL this morning dropped below goal at lunch time. Lantus scale at HS was decreased. Will now receive 0, 15, or 25 unit depending on BSG. * Loosened parameters of bolus insulin as blood glucose has been trending down over the last 24 hours. 07/19: * Patient with hx of type II diabetes admitted with left toe osteomyelitis. * Currently NPO- BSGs have trended down since admission yesterday- received 30 units of lantus * Will continue with parameters similar to weight stress 3 PLAN FOR INPATIENT GLYCEMIC CONTROL: * Hold outpatient oral diabetes medications * Basal insulin * Lantus 15 units SC HS * Bolus insulin * NovoLog per scale ACHS or Q6hrs while NPO * Goal Range: Low 120 mg/dL - High 160 mg/dL * Correction Factor: 30 mg/dL/unit * Nutritional / Prandial insulin per carb ratio of 1 unit per 10 grams CHO consumed
[2025-07-24] MEDS: LANTUS PER UNIT CHARGE SQ SCH (21:19)
[2025-07-24] MEDS: MELATONIN 3 MG TAB PO PRN (23:50)
[2025-07-25 07:05] VITALS: RESP 16; TEMP 97.9
--- NOTE | 2025-07-25 08:19 | Infectious Disease Progress Nt ---
Date of Service July 25, 2025 Telehealth Information This is a non-billable note Assessment & Plan (1) Osteomyelitis of fifth toe of left foot: Plan: I have reviewed the culture results: Corynebacterium sp, not C jeikeium or striatum, growing in broth only. I would continue zosyn to cover the multiple spp and possible Corynebacterium sp. It is possible that the Corynebacterium sp is a contaminant. Results & Data Vital Signs (Past 12 Hours) Vital Signs Temp Pulse Resp BP Pulse Ox O2 Del Method 07/25/25 07:00 36.6 C 66 16 160/80 H 97 Room Air 07/25/25 00:05 36.8 C 67 18 171/82 H 94 Room Air 07/24/25 21:20 Room Air
--- NOTE | 2025-07-25 13:01 | Discharge Summary ---
Discharge Summary Date of Service July 25, 2025 Principal Dx & Hospital Course #1 = Principal Diagnosis (1) Osteomyelitis of fifth toe of left foot: (2) Status post amputation of toe of left foot: (3) Diabetic ulcer of left foot associated with type 2 diabetes mellitus, with necrosis of bone: (1) Foot osteomyelitis, left: (2) Insulin-requiring or dependent type II diabetes mellitus: (3) COPD (chronic obstructive pulmonary disease): (4) Hypertension, uncontrolled: (5) Dyslipidemia: (6) Hypothyroid: (7) Rheumatoid arthritis: (8) Nicotine dependence: (9) RITTER (nonalcoholic steatohepatitis): (10) Sleep apnea: Plan 65 yo female with pmhx diabetes, COPD, hypertension, rheumatoid arthritis, and dyslipidemia was made aware by her significant other that she had a black spot on the lateral aspect of her left foot on Friday 2/2 osteomyelitis. #Left 5th Digit Osteomyelitis -noted on MRI -likely 2/2 uncontrolled diabetes, HLD Plan: -podiatry consulted, appreciate recs -LE duplex ordered per podiatry -possible partial amputation ordered for later in afternoon, patient has been NPO -PT/OT ordered for post procedure 07/19 s/p Ray Amputation L 5th digit - Pathology fifth metatarsal proximal margin 07/19/2025: Pending - Intraoperative bone culture fifth metatarsal right foot: Pending will consult ID for abx recommendations, Luana ID Dr. Sood recommendations agree w/ piperacillin-tazobactam 4.5 gm iv q8 hours - Anticipate total 3 weeks: last dose on 08/09/25 - F/u OR cultures for final result just in case they grow organisms resistant to current abx - Check weekly CRP, CMP and CBC w/ diff while on abx therapy - May place a midline: please, remove the line once done with abx therapy - the patient prefers to follow up w/ her PCP rather than ID as outpatient: ID will follow the weekly lab result - Probiotic while on abx therapy - I emphasized the importance of following up w/ podiatry for wound care 07/25 stable pathology results: pending, follow up L toe culture: Corynebacterium species continue IV Zosyn, last day 08/09/25, Midline placed weekly CRP, CMP and CBC w/ diff while on abx therapy ff up with Podiatry in 1 week #DM Type 2 -A1c of 9.6 represents under controlled -likely cause of above Plan: -pharmacy glycemic control consult -continue farxiga -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, 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, appreciate recs #COPD -continue albuterol #Hypothyroidism -may need dose increase outpatient -recheck TSH in 3 months #HTN #HLD -continue atorvastatin, aspirin - continue Lisinopril d/c Losartan - amlodipine added for BP control monitor cclosely #Rheumatoid Arthritis - on Plaquenil -f/u outpatient DVT prophylaxis Lovenox XC Disposition d/c home ff up with PCP as outpatient Notes For Next Care Provider Medication Changes From Visit as per med rec Admission HPI Per Admitting Provider Patient is a 65-year-old female with known diabetes, COPD, hypertension, rheumatoid arthritis, and dyslipidemia was made aware by her significant other that she had a black spot on the lateral aspect of her left foot on Friday. She did notice it be a little bit painful but was not really too red or swollen. Proceeded to urgent care today x-rays urgent care question osteomyelitis and they sent her to the emergency room. In the emergency room Repeat x-rays were concerning for osteomyelitis. WBCs were normal but ESR was significantly elevated. Procalcitonin was within normal range. She was referred to our service for further evaluation and treatment. Time of my evaluation patient is comfortable. She denies any fever or chills. No cough or cold symptoms. She really could not give a whole lot of detailed history. She does not remember hitting the foot or having open sore on the foot. States that her significant other saw it on Friday. Before then she has no known issues with her feet. She does know she has diabetes. She does know that she takes a long-acting and a short acting insulin. She really cannot tell me the names of any of her other medications. She does admit to smoking at least a pack to a pack and a half a day of cigarettes a day no significant alcohol use. Discharge Exam General- oriented x 3, not in distress, speaks in sentences with no effort or accessory muscle use Eyes- anicteric Neck- no JVD Lungs- clear breath sounds bilaterally, no rales/wheezes Heart- normal rate, regular rhythm; no murmurs Abdomen- normal bowel sounds, nondistended, soft, nontender Extremities- no pretibial edema, no calf tenderness LLE: cam boot in place Neuro- alert, oriented x 3; no gross focal neurologic deficits Skin- warm & dry Updated Medication List Medication Instructions Recorded Confirmed Type aspirin 81 mg tablet 81 mg PO DAILY ##0 03/17/13 07/18/25 History epinephrine 0.3 mg/0.3 mL 0.3 mg IM UD PRN Allergic Reaction 09/28/15 07/18/25 History injection, auto-injector (EpiPen) ##0 folic acid 1 mg tablet 1 mg PO DAILY ##0 09/28/15 07/18/25 History albuterol sulfate 90 mcg/actuation 2 puff inhalation Q4H PRN WHEEZING 07/18/25 07/18/25 History aerosol inhaler OR COUGH atorvastatin 20 mg tablet 20 mg PO DAILY 07/18/25 07/18/25 History empagliflozin 10 mg tablet 10 mg PO DAILY 07/18/25 07/18/25 History (Jardiance) hydrocodone 5 mg-acetaminophen 325 1 tab PO QID PRN Pain 07/18/25 07/18/25 History mg tablet insulin glargine 100 unit/mL (3 27 unit subcut HS 07/18/25 07/18/25 History mL) subcutaneous pen (Lantus Solostar U-100 Insulin) levothyroxine 88 mcg tablet 88 mcg PO DAILY 07/18/25 07/18/25 History lisinopril 10 mg tablet 10 mg PO DAILY 07/18/25 07/18/25 History sodium chloride 1,000 mg soluble 3,000 mg PO DAILY 07/18/25 07/18/25 History tablet tirzepatide 7.5 mg/0.5 mL 7.5 mg subcut WK 07/18/25 07/18/25 History subcutaneous pen injector ([place]) L.acidop,casei,lactis,rham-B.lact,viridiana 1 cap PO DAILY 60 days #60 caps 07/25/25 Rx 625 mg (10 billion cell) capsule (Advanced Probiotic) amlodipine 5 mg tablet 5 mg PO BID 30 days #60 tabs 07/25/25 Rx piperacillin-tazobactam 4.5 gram 4.5 g IV Q8H 07/25/25 Rx intravenous solution Hospital Stay Data Consultations 07/18/25 20:05 ED Decision to Admit Stat 07/18/25 20:34 Consult Podiatry Routine 07/20/25 16:00 Consult Infectious Diseases Routine Procedures Performed Operation Date: 07/19/25 15:00 Actual Procedures p Left Partial 5th Ray Amputation(Left) - Franklin Zhou DPM Diagnostic Imagining Performed Laboratory Results WBC 7.19 K/ul (4.8-10.8) 07/19/25 05:35 RBC 4.08 M/uL (4.20-5.40) L 07/19/25 05:35 Hgb 13.3 g/dL (12.0-16.0) 07/19/25 05:35 Hct 37.2 % (37.0-47.0) 07/19/25 05:35 MCV 91.2 fL (80.0-100.0) 07/19/25 05:35 MCH 32.6 pg (25.0-34.0) 07/19/25 05:35 MCHC 35.8 g/dL (32.0-36.0) 07/19/25 05:35 RDW Std Deviation 42.0 fL (36.4-46.3) 07/19/25 05:35 RDW Coeff of Hilary 12.6 % (11.5-14.5) 07/19/25 05:35 Plt Count 231 K/uL (130-400) 07/19/25 05:35 MPV 11.2 fL (9.4-12.4) 07/19/25 05:35 Immature Gran % (Auto) 0.2 % 07/18/25 18:45 Neut % (Auto) 54.5 % 07/18/25 18:45 Lymph % (Auto) 36.0 % 07/18/25 18:45 [place] % (Auto) 6.9 % 07/18/25 18:45 Eos % (Auto) 2.1 % 07/18/25 18:45 Baso % (Auto) 0.3 % 07/18/25 18:45 Neut # (Auto) 5.10 K/uL (1.40-6.50) 07/18/25 18:45 Lymph # (Auto) 3.38 K/uL (1.20-3.40) 07/18/25 18:45 [place] # (Auto) 0.65 K/uL (0.11-0.59) H 07/18/25 18:45 Eos # (Auto) 0.20 K/uL (0.00-0.50) 07/18/25 18:45 Baso # (Auto) 0.03 K/uL (0.00-0.20) 07/18/25 18:45 Immature Gran # (Auto) 0.02 K/uL (0.01-0.20) 07/18/25 18:45 ESR 91 mm/hr (0-30) H 07/18/25 18:45 PT 10.6 Seconds (9.0-12.0) 07/18/25 18:45 INR 1.0 (0.9-1.1) 07/18/25 18:45 APTT 25 Seconds (21-31) 07/18/25 18:45 PTT Ratio 0.9 07/18/25 18:45 Sodium 133 mmol/L (136-145) L 07/22/25 07:18 Potassium 4.0 mmol/L (3.5-5.1) 07/22/25 07:18 Chloride 100 mmol/L (98-107) 07/22/25 07:18 Carbon Dioxide 25 mmol/L (21-32) 07/22/25 07:18 Anion Gap 8 (3-11) 07/22/25 07:18 BUN 11 mg/dl (6-23) 07/22/25 07:18 Creatinine 0.55 mg/dl (0.6-1.2) L 07/22/25 07:18 Est Cr Clr Drug Dosing 113.8 ml/min 07/22/25 07:18 eGFR 102.93 07/22/25 07:18 BUN/Creatinine Ratio 20.0 (10-20) 07/22/25 07:18 Glucose 118 mg/dl (70-99(Fasting)) H 07/22/25 07:18 POC Glucose 181 mg/dl (70-99) H 07/25/25 11:24 Estimat Average Glucose 229 mg/dl 07/19/25 05:35 Hemoglobin A1c 9.6 % (4.5-5.6) H 07/19/25 05:35 Calcium 8.9 mg/dl (8.6-10.3) 07/22/25 07:18 Phosphorus 4.7 mg/dl (2.5-4.9) 07/20/25 07:11 Magnesium 1.9 mg/dl (1.7-2.4) 07/20/25 07:11 Total Bilirubin 0.6 mg/dl (0.2-1.0) 07/21/25 05:50 AST 27 U/L (13-39) 07/21/25 05:50 ALT 28 U/L (7-52) 07/21/25 05:50 Alkaline Phosphatase 119 U/L (34-104) H 07/21/25 05:50 C-Reactive Protein 2.99 mg/dl (0-0.5) H 07/18/25 18:45 Total Protein 7.4 gm/dl (6.0-8.3) 07/21/25 05:50 Albumin 3.5 gm/dl (3.4-5.0) 07/21/25 05:50 Globulin 3.9 gm/dl (2.5-4.0) 07/21/25 05:50 Albumin/Globulin Ratio 0.9 (0.9-2) 07/21/25 05:50 Triglycerides 136 mg/dl (0-150) 07/19/25 15:41 Cholesterol 156 mg/dl (0-200) 07/19/25 15:41 LDL Cholesterol, Calc 75 mg/dl 07/19/25 15:41 VLDL Cholesterol, Calc 27 mg/dl (0-30) 07/19/25 15:41 HDL Cholesterol 54 mg/dl 07/19/25 15:41 Cholesterol/HDL Ratio 2.9 (0-5) 07/19/25 15:41 Procalcitonin 0.18 ng/ml (0-0.5) 07/18/25 18:45 TSH 11.574 uIu/ml (0.300-4.500) H 07/19/25 05:35 Free T4 1.06 ng/dl (0.61-1.60) 07/19/25 05:35 Nasal Screen MRSA (PCR) Negative (Negative) 07/18/25 18:55 Impressions Foot X-Ray 07/18/25 18:36 INDICATION: Pain TECHNIQUE: 3 views of the left foot were obtained. COMPARISON: None FINDINGS: No displaced acute osseous process is identified. There is soft tissue inflammatory change with swelling laterally abutting the fifth digit MTP joint. Subtle erosive changes are suggested in the abutting bones of the metatarsal head and the base of the proximal phalanx. Pes planus with likely Charcot arthropathy of the hindfoot and the midfoot. IMPRESSION: Erosive changes are suggested in the fifth digit metatarsal head and proximal phalangeal base abutting the soft tissue inflammatory change. Early osteomyelitis could be a consideration Electronically signed by Luz Marinauylia Jordan 07-18-2025 7:55 PM Foot MRI 07/18/25 20:50 Exam(s): MRI LEFT FOOT W/WO Contrast IV Amt: 9ml gadavist EXAM: MR Left Lower Extremity Without and With Intravenous Contrast, Foot CLINICAL HISTORY: Reason for exam: Osteomyelitis fifth metatarsal. OTHER: Other Notes: wound 5th metatarsal head, rule out osteomyelitis TECHNIQUE: Multiplanar magnetic resonance images of the left foot without and with intravenous contrast. Moderate motion artifact. CONTRAST: Patient received 9ml gadavist of IV contrast COMPARISON: Left foot x-ray, same day. FINDINGS: Soft tissues: Crescentic fluid collection associated with the 5th digit MTP joint, measures 0.8 x 0.2 x 0.6 cm, adjacent to skin ulceration, difficult to clearly evaluate due to motion artifact, small abscess or septic joint difficult to exclude. Bones/joints: Small focal area marrow edema and enhancement distal 5th metatarsal, nonspecific, suspect osteomyelitis. Severe degenerative joint disease at multiple areas, including 5th MTP, 4th and 5th TMT joints. IMPRESSION: 1. Nonspecific edema distal 5th metatarsal, suspect osteomyelitis, given surrounding skin ulceration. 2. Crescentic fluid deep to skin ulceration, nonspecific, small abscess or septic arthritis difficult to exclude. 3. Severe arthritis, multiple levels. 4. Moderate motion/artifact. Electronically signed by: Jerrica Fuchs M.D. 07/19/25 00:28 AM Duplex Scan Lower Extremity Artery 07/19/25 12:27 US arterial duplex LE LT CLINICAL HISTORY: pre op 5thtoe amputation COMPARISON STUDY: None FINDINGS: No significantly elevated velocities seen at the arteries of the left lower extremity. There are biphasic and triphasic waveforms throughout. Right FRANCISCO JAVIER is 1.1, normal. Left FRANCISCO JAVIER is 1.1, normal. IMPRESSION: No significant arterial narrowing seen at the left lower extremity. ACT 112: Negative or not required by law. Electronically signed by: Trell Barry M.D. 07/19/2025 2:32 PM 07/18/25 20:50 MRI Foot [MR foot LT wo/w con] Routine 07/19/25 12:27 US arterial duplex LE LT Routine Pending Results Patient Have Any Pending Studies at Discharge: No Discharge Instructions Given to Patient (Per Discharging Provider) PLEASE REFER TO YOUR NEW MEDICATION LIST AND FOLLOW INSTRUCTIONS CAREFULLY. YOUR NEW MEDICATIONS INCLUDE: Piperacillin/Tazobactam- antibiotics for toe infection, until 08/09/25 Probiotics- to prevent diarrhea caused by antibiotics, take for at least 2 months Stop Losartan, take Amlodipine for blood pressure control. Always ambulate frequently to prevent blood clots. PLEASE CALL YOUR PRIMARY CARE PHYSICIAN OR RETURN TO THE ER IF WITH WORSENING OF SYMPTOMS, INCLUDING fever/chills, increased redness/pain/discharge from wound site, leg swelling, diarrhea, etc. FOLLOW UP WITH PRIMARY CARE PHYSICIAN OUTLINED ABOVE. FOLLOW UP WITH ORNAMENTAL IRON WORKER APPRENTICE DR. ZHOU IN 1 WEEK. PLEASE CALL HIS OFFICE TO SET UP AN APPOINTMENT. CONTACT INFORMATION NOTED ABOVE. TAKE CARE. Total Time Total Time Spent Total Time Spent (In Minutes): 40 minutes
--- NOTE | 2025-07-25 13:47 | Podiatry Progress Note ---
Date of Service July 25, 2025 Assessment & Plan (1) Foot osteomyelitis, left: (2) Status post amputation of toe of left foot: Plan Status post partial fifth ray amputation of the left foot 07/19/2025: - Proximal margin pathology: Negative for osteomyelitis - Intraoperative culture pending: Preliminary growing corynebacterium species - Patient evaluated by infectious disease with anticipated 3-week course of IV Zosyn 4.5 mg every 8 hours. Patient plans to follow with PCP for management of PICC line and IV antibiotics following discharge as opposed to infectious disease per ID note. - Continue cam walker at all times while weightbearing until outpatient follow- up. Partial fifth ray amputation site is well coped with no signs of local soft tissue infection. Dressing changed. Okay to keep current dressing clean dry and intact until follow-up in the podiatry clinic. Patient is okay for discharge from podiatry standpoint. - Follow-up within 2 weeks of discharge at the podiatry clinic for suture removal and wound reevaluation. Patient would also benefit from follow-up in the diabetic foot clinic within 1 month of discharge for more extensive diabetic foot education and diabetic foot wear in hopes to prevent future ulceration. Admission and Anticipated Discharge Date Admission Date: July 18, 2025 Subjective Patient resting comfortably in hospital bed with significant another present at bedside. Cam boot is in place and patient denies issues with ambulation on the cam boot. Denies pain in the left foot. Awaiting discharge. Review of Systems Review of Systems: Denies nausea, vomiting, fever, chills, shortness of breath, chest pain. Denies pain in the left foot. Physical Exam Physical Exam: Focused lower extremity musculoskeletal exam: Leg: No pain with compression of the calf muscle. Ankles: Normal to inspection and palpation. No swelling bilaterally. No tenderness bilaterally.Motor strength is intact. Range of motion pain-free and unlimited. Feet: status post partial fifth ray amputation left foot 07/19/2025. Wound edges well-approximated with all sutures intact. No active drainage. Mild pedrito-incisional erythema. No lymphangitis or streaking. Results & Data Results & Data Vital Signs (Past 12 Hours) Vital Signs Temp Pulse Resp BP Pulse Ox O2 Del Method 07/25/25 08:05 Room Air 07/25/25 07:00 36.6 C 66 16 160/80 H 97 Room Air Diagnostic Findings Pathology collected 07/19/2025: FINAL DIAGNOSIS A. Toe, left fifth, amputation: - Ulcer. Cellulitis. - Viable-appearing bone without significant inflammation. B. Toe, left fifth, proximal margin, amputation: - Viable appearing bone and soft tissue without significant inflammation. at 1156 Coding Level of Care Code 33286 SUB INP/OBS CARE 09/18MIN Diagnoses Other acute osteomyelitis of left foot M86.172 Osteomyelitis type: other acute Status post amputation of toe of left foot Z89.422 (1) Foot osteomyelitis, left Osteomyelitis type: other acute Qualified Code(s): M86.172 - Other acute osteomyelitis, left ankle and foot
[2025-07-25 14:34] VITALS: BP 145/70; O2SAT 96
[2025-07-25 15:08] VITALS: PULSE 80
== END 2025-07-25 15:31 | disposition home health service (06) | DRG 617 ==
LOC: ED 18:10 → 3W 20:34 → SUATTDRO 20:34 → 3W 21:39
DX: I10 Essential (primary) hypertension; E11.621 Type 2 diabetes mellitus with foot ulcer; E03.9 Hypothyroidism, unspecified; F17.210 Nicotine dependence, cigarettes, uncomplicated; M06.9 Rheumatoid arthritis, unspecified; E87.1 Hypo-osmolality and hyponatremia; M86.8X7 Other osteomyelitis, ankle and foot; K75.81 Nonalcoholic steatohepatitis (NASH); Z79.82 Long term (current) use of aspirin; L97.424 Non-pressure chronic ulcer of left heel and midfoot with necrosis of bone; Z91.040 Latex allergy status; J44.9 Chronic obstructive pulmonary disease, unspecified; L03.116 Cellulitis of left lower limb; Z79.4 Long term (current) use of insulin; E11.69 Type 2 diabetes mellitus with other specified complication; E78.5 Hyperlipidemia, unspecified; Z79.890 Hormone replacement therapy